=== PATIENT | female | born 1945 | race Caucasian/White ===

== ENCOUNTER 2020-09-01 18:32 | Inpatient (IN) ==
[2020-09-01] MEDS ORDERED: GLUCAGON 1 MG VIAL IM PRN (21:05)
[2020-09-01] MEDS ORDERED: ONDANSETRON 4 MG/2 ML VIAL IV PRN (21:05)
[2020-09-01] MEDS ORDERED: ACETAMINOPHEN 325 MG TABLET PO PRN (21:05)
[2020-09-01] MEDS ORDERED: DEXTROSE 50% 25 GM/50 ML VIAL IV PRN ×2 (21:05)
[2020-09-01] MEDS: SODIUM CHLORIDE 0.9% 1,000 ML IV SCH (23:00)
[2020-09-01] MEDS ORDERED: SODIUM CHLORIDE 0.9% 1,000 ML IV ONE (23:53)
[2020-09-02] MEDS: ALBUTEROL/IPRATROPIUM 3 ML NEB RESP TX SCH ×4 (00:58→19:30)
[2020-09-02] MEDS: PIPERACILLIN/TAZOBACTAM 3,375 MG in SODIUM CHLORIDE 0.9% 100 ML IV SCH ×3 (03:13→17:40)
[2020-09-02 04:47] LABS: ABG Base Excess 1.7 MMOL/L (-2.5-2.5); ABG Oxygen Saturation 99.5 % (95-100); ABG PCO2 39.4 MM HG (35-48); ABG PH 7.428 (7.35-7.45); ABG TCO2 22.8 MMOL/L (23-27); Allen Test Positive
[2020-09-02] MEDS: SODIUM CHLORIDE 0.9% 1,000 ML IV SCH ×3 (07:20→23:13)
[2020-09-02] MEDS: INSULIN REGULAR 100 UNIT/ML SUBCUT SCH ×4 (07:30→21:26)
[2020-09-02 08:32] LABS: Basophils % 0.1 % (0.0-0.8); Eosinophils % 0.3 % (0.00-10.9); Hematocrit 41.5 VOL% (35.7-47.0); Hemoglobin 13.5 GM/DL (12.0-16.0); Immature Granulocytes % 0.5 %; Immature Granulocytes Absolute 0.06 #; Lymphocytes # 3.4 10*3/uL (1.4-4.0); Lymphocytes % 28.2 % (21.3-54.2); Mean Corpuscular HGB Conc 32.5 GM/DL (32-36); Mean Platelet Volume 10.5 FL (9.6-12.0); Neutrophils % 65.9 % (38.7-73.9); Platelet Count 147 T/CUMM (130-400); Red Blood Count 4.19 MC/CUMM (3.8-5.5); White Blood Count 12.1 T/CUMM (4-12)
[2020-09-02 09:02] LABS: Albumin 2.5 G/DL (3.4-5.0); Bilirubin,Total 0.5 MG/DL (0.2-1.0); Calcium 8.5 MG/DL (8.5-10.1); Osmolality,Calculated 290.3 MOS/KG (273-304); Potassium 3.4 MMOL/L (3.5-5.1); Total Protein 6.2 G/DL (6.4-8.3)
[2020-09-02 09:32] LABS: Anisocytosis Slight; Macrocytosis Slight; Platelet Estimate Adequate
[2020-09-02] MEDS: ENOXAPARIN 40 MG/0.4 ML SYRINGE SUBCUT SCH (10:12)
[2020-09-02] MEDS: PANTOPRAZOLE 40 MG TABLET PO SCH (10:12)
[2020-09-02] MEDS ORDERED: MAGNESIUM SULF RIDER 4 GM in PREMIX 1 EACH IV PRN (12:59)
[2020-09-02] MEDS ORDERED: NITROGLYCERIN SL 0.4 MG TABLET SL PRN (13:39)
[2020-09-02] MEDS: ATORVASTATIN 40 MG TABLET PO SCH (15:13)
[2020-09-02] MEDS: OXYBUTYNIN XL 5 MG TABLET PO SCH (15:13)
[2020-09-02] MEDS: NEBIVOLOL 5 MG TABLET PO SCH (15:13)
[2020-09-02] MEDS: ASPIRIN CHEW 81 MG TABLET PO SCH (15:13)
[2020-09-02] MEDS: POTASSIUM CHLORIDE 20 MEQ TABLET PO SCH (15:13)
[2020-09-02] MEDS: FUROSEMIDE 40 MG TABLET PO SCH (15:13)
[2020-09-02] MEDS: IRON (CARBONYL)/VIT C/B12/FA TABLET PO SCH (15:14)
[2020-09-02] MEDS: MAGNESIUM OXIDE 400 MG TABLET PO SCH ×2 (15:14→21:27)
[2020-09-02] MEDS: OMEGA 3 ACID ETHYL ESTERS 1 GM CAPSULE PO SCH ×2 (15:14→21:26)
[2020-09-02] MEDS: BUDESONIDE/FORMOTEROL 160-4.5 INHALER 6 GM INH SCH ×2 (15:15→21:29)
[2020-09-02] MEDS: PIRFENIDONE 267 MG PO SCH ×2 (18:17→21:30)
[2020-09-02] MEDS: ZALEPLON 5 MG CAPSULE PO PRN (21:26)
[2020-09-02] MEDS: AMITRIPTYLINE 25 MG TABLET PO SCH (21:27)
[2020-09-02] MEDS: GABAPENTIN 100 MG CAPSULE PO SCH (21:27)
[2020-09-03] MEDS: ALBUTEROL/IPRATROPIUM 3 ML NEB RESP TX SCH ×4 (00:12→19:22)
[2020-09-03] MEDS: PIPERACILLIN/TAZOBACTAM 3,375 MG in SODIUM CHLORIDE 0.9% 100 ML IV SCH ×3 (01:48→09:42)
[2020-09-03 04:40] LABS: Basophils % 0.1 % (0.0-0.8); Eosinophils # 0.1 10*3/uL (0.0-0.87); Eosinophils % 1.3 % (0.00-10.9); Hematocrit 36.4 VOL% (35.7-47.0); Hemoglobin 11.7 GM/DL (12.0-16.0); Immature Granulocytes % 0.4 %; Immature Granulocytes Absolute 0.04 #; Lymphocytes # 3.3 10*3/uL (1.4-4.0); Lymphocytes % 33.2 % (21.3-54.2); Mean Corpuscular HGB Conc 32.1 GM/DL (32-36); Mean Corpuscular Volume 98.9 FL (87-102); Monocytes % 5.5 % (1.7-12.7); Neutrophils % 59.5 % (38.7-73.9); Platelet Count 134 T/CUMM (130-400); Red Blood Count 3.68 MC/CUMM (3.8-5.5); Red Cell Distribution Width 13.9 % (9.3-17.3); White Blood Count 9.9 T/CUMM (4-12)
[2020-09-03 05:10] LABS: Albumin 2.3 G/DL (3.4-5.0); Bilirubin,Total 0.6 MG/DL (0.2-1.0); Calcium 8.3 MG/DL (8.5-10.1); Osmolality,Calculated 287.4 MOS/KG (273-304); Potassium 3.3 MMOL/L (3.5-5.1); Total Protein 5.8 G/DL (6.4-8.3)
[2020-09-03 05:43] LABS: Calcium 8.1 MG/DL (8.5-10.1); Osmolality,Calculated 292.1 MOS/KG (273-304); Potassium 3.4 MMOL/L (3.5-5.1)
[2020-09-03] MEDS: MAGNESIUM SULF RIDER 2 GM in PREMIX 1 EACH IV PRN (08:48)
[2020-09-03] MEDS: INSULIN REGULAR 100 UNIT/ML SUBCUT SCH ×4 (08:50→21:18)
[2020-09-03] MEDS: INSULIN GLARGINE 100 UNIT/ML SUBCUT SCH (08:50)
[2020-09-03] MEDS: OMEGA 3 ACID ETHYL ESTERS 1 GM CAPSULE PO SCH ×2 (08:50→21:11)
[2020-09-03] MEDS: ASPIRIN CHEW 81 MG TABLET PO SCH (08:51)
[2020-09-03] MEDS: PANTOPRAZOLE 40 MG TABLET PO SCH (08:51)
[2020-09-03] MEDS: IRON (CARBONYL)/VIT C/B12/FA TABLET PO SCH (08:51)
[2020-09-03] MEDS: NEBIVOLOL 5 MG TABLET PO SCH (08:51)
[2020-09-03] MEDS: FUROSEMIDE 40 MG TABLET PO SCH (08:52)
[2020-09-03] MEDS: OXYBUTYNIN XL 5 MG TABLET PO SCH (08:52)
[2020-09-03] MEDS: POTASSIUM CHLORIDE 20 MEQ TABLET PO SCH (08:52)
[2020-09-03] MEDS: ATORVASTATIN 40 MG TABLET PO SCH (08:52)
[2020-09-03] MEDS: ENOXAPARIN 40 MG/0.4 ML SYRINGE SUBCUT SCH (08:53)
[2020-09-03] MEDS: MAGNESIUM OXIDE 400 MG TABLET PO SCH ×2 (08:53→21:10)
[2020-09-03] MEDS: PIRFENIDONE 267 MG PO SCH ×4 (08:53→21:12)
[2020-09-03] MEDS: BUDESONIDE/FORMOTEROL 160-4.5 INHALER 6 GM INH SCH ×2 (08:54→21:19)
[2020-09-03] MEDS: SODIUM CHLORIDE 0.9% 1,000 ML IV SCH (09:50)
[2020-09-03] MEDS: POTASSIUM CHLORIDE 20 MEQ TABLET PO PRN ×2 (10:32→13:25)
[2020-09-03] MEDS ORDERED: NEOMYCIN/POLYMYXIN/BACITRACIN OINT 0.9 GM PACK TOP PRN (10:36)
[2020-09-03] MEDS: LEVOFLOXACIN INJ 750 MG in PREMIX 1 EACH IV SCH (16:42)
[2020-09-03] MEDS: AMITRIPTYLINE 25 MG TABLET PO SCH (21:10)
[2020-09-03] MEDS: GABAPENTIN 100 MG CAPSULE PO SCH (21:10)
[2020-09-03] MEDS: ZALEPLON 5 MG CAPSULE PO PRN (22:32)
[2020-09-04] MEDS: ALBUTEROL/IPRATROPIUM 3 ML NEB RESP TX SCH ×4 (00:41→20:10)
[2020-09-04 05:21] LABS: Basophils % 0.1 % (0.0-0.8); Eosinophils # 0.2 10*3/uL (0.0-0.87); Eosinophils % 1.6 % (0.00-10.9); Hematocrit 37.9 VOL% (35.7-47.0); Hemoglobin 11.8 GM/DL (12.0-16.0); Immature Granulocytes % 0.4 %; Immature Granulocytes Absolute 0.04 #; Lymphocytes # 2.9 10*3/uL (1.4-4.0); Mean Corpuscular HGB Conc 31.1 GM/DL (32-36); Mean Corpuscular Volume 101.6 FL (87-102); Mean Platelet Volume 10.4 FL (9.6-12.0); Monocytes % 4.8 % (1.7-12.7); Neutrophils % 63.1 % (38.7-73.9); Platelet Count 133 T/CUMM (130-400); Red Blood Count 3.73 MC/CUMM (3.8-5.5); Red Cell Distribution Width 14.1 % (9.3-17.3); White Blood Count 9.7 T/CUMM (4-12)
[2020-09-04] MEDS: SODIUM CHLORIDE 0.9% 1,000 ML IV SCH ×3 (05:52→20:53)
[2020-09-04 05:56] LABS: Calcium 8.5 MG/DL (8.5-10.1); Potassium 3.9 MMOL/L (3.5-5.1)
[2020-09-04] MEDS: MAGNESIUM SULF RIDER 2 GM in PREMIX 1 EACH IV PRN (06:29)
[2020-09-04] MEDS: POTASSIUM CHLORIDE 20 MEQ TABLET PO PRN (06:29)
[2020-09-04] MEDS: OXYBUTYNIN XL 5 MG TABLET PO SCH (09:49)
[2020-09-04] MEDS: DEXAMETHASONE 4 MG TABLET PO SCH (09:50)
[2020-09-04] MEDS: IRON (CARBONYL)/VIT C/B12/FA TABLET PO SCH (09:50)
[2020-09-04] MEDS: POTASSIUM CHLORIDE 20 MEQ TABLET PO SCH (09:50)
[2020-09-04] MEDS: ASPIRIN CHEW 81 MG TABLET PO SCH (09:50)
[2020-09-04] MEDS: FUROSEMIDE 40 MG TABLET PO SCH (09:50)
[2020-09-04] MEDS: PANTOPRAZOLE 40 MG TABLET PO SCH (09:50)
[2020-09-04] MEDS: MAGNESIUM OXIDE 400 MG TABLET PO SCH ×3 (09:50→23:16)
[2020-09-04] MEDS: ATORVASTATIN 40 MG TABLET PO SCH (09:51)
[2020-09-04] MEDS: ENOXAPARIN 40 MG/0.4 ML SYRINGE SUBCUT SCH (09:51)
[2020-09-04] MEDS: OMEGA 3 ACID ETHYL ESTERS 1 GM CAPSULE PO SCH ×2 (09:51→20:52)
[2020-09-04] MEDS: BUDESONIDE/FORMOTEROL 160-4.5 INHALER 6 GM INH SCH ×2 (09:52→20:53)
[2020-09-04] MEDS: INSULIN GLARGINE 100 UNIT/ML SUBCUT SCH (09:52)
[2020-09-04] MEDS: PIRFENIDONE 267 MG PO SCH ×3 (09:55→23:15)
[2020-09-04] MEDS: NEBIVOLOL 5 MG TABLET PO SCH (09:56)
[2020-09-04] MEDS: INSULIN REGULAR 100 UNIT/ML SUBCUT SCH ×4 (09:56→20:52)
[2020-09-04] MEDS: BENZONATATE 100 MG CAPSULE PO SCH ×3 (11:30→20:52)
[2020-09-04] MEDS: DORNASE ALFA 2.5 MG/2.5 ML VIAL RESP TX SCH ×2 (18:15→20:10)
[2020-09-04] MEDS: ZALEPLON 5 MG CAPSULE PO PRN (20:51)
[2020-09-04] MEDS: GABAPENTIN 100 MG CAPSULE PO SCH (20:52)
[2020-09-04] MEDS: AMITRIPTYLINE 25 MG TABLET PO SCH (20:52)
[2020-09-05] MEDS: ALBUTEROL/IPRATROPIUM 3 ML NEB RESP TX SCH ×4 (01:31→21:00)
[2020-09-05] MEDS: SODIUM CHLORIDE 0.9% 1,000 ML IV SCH ×2 (06:23→16:13)
[2020-09-05] MEDS: DORNASE ALFA 2.5 MG/2.5 ML VIAL RESP TX SCH ×2 (07:50→21:08)
[2020-09-05] MEDS ORDERED: DEXAMETHASONE 4 MG TABLET PO SCH (09:00)
[2020-09-05] MEDS: ASPIRIN CHEW 81 MG TABLET PO SCH (09:52)
[2020-09-05] MEDS: NEBIVOLOL 5 MG TABLET PO SCH (09:52)
[2020-09-05] MEDS: INSULIN REGULAR 100 UNIT/ML SUBCUT SCH ×4 (09:52→20:27)
[2020-09-05] MEDS: OXYBUTYNIN XL 5 MG TABLET PO SCH (09:53)
[2020-09-05] MEDS: ENOXAPARIN 40 MG/0.4 ML SYRINGE SUBCUT SCH (09:53)
[2020-09-05] MEDS: IRON (CARBONYL)/VIT C/B12/FA TABLET PO SCH (09:53)
[2020-09-05] MEDS: ATORVASTATIN 40 MG TABLET PO SCH (09:53)
[2020-09-05] MEDS: POTASSIUM CHLORIDE 20 MEQ TABLET PO SCH (09:53)
[2020-09-05] MEDS: MAGNESIUM OXIDE 400 MG TABLET PO SCH ×4 (09:53→20:38)
[2020-09-05] MEDS: FUROSEMIDE 40 MG TABLET PO SCH (09:53)
[2020-09-05] MEDS: INSULIN GLARGINE 100 UNIT/ML SUBCUT SCH (09:53)
[2020-09-05] MEDS: PIRFENIDONE 267 MG PO SCH ×3 (09:54→20:38)
[2020-09-05] MEDS: BENZONATATE 100 MG CAPSULE PO SCH ×3 (09:54→20:27)
[2020-09-05] MEDS: PANTOPRAZOLE 40 MG TABLET PO SCH (09:54)
[2020-09-05] MEDS: BUDESONIDE/FORMOTEROL 160-4.5 INHALER 6 GM INH SCH ×2 (09:54→20:26)
[2020-09-05] MEDS: OMEGA 3 ACID ETHYL ESTERS 1 GM CAPSULE PO SCH ×2 (10:44→20:26)
[2020-09-05] MEDS: LEVOFLOXACIN INJ 750 MG in PREMIX 1 EACH IV SCH (16:09)
[2020-09-05] MEDS: GABAPENTIN 100 MG CAPSULE PO SCH (20:26)
[2020-09-05] MEDS: AMITRIPTYLINE 25 MG TABLET PO SCH (20:27)
[2020-09-05] MEDS: ZALEPLON 5 MG CAPSULE PO PRN (20:34)
[2020-09-06] MEDS: ALBUTEROL/IPRATROPIUM 3 ML NEB RESP TX SCH ×2 (02:10→07:26)
[2020-09-06 05:56] LABS: Basophils % 0.1 % (0.0-0.8); Eosinophils # 0.1 10*3/uL (0.0-0.87); Eosinophils % 0.8 % (0.00-10.9); Hemoglobin 11.1 GM/DL (12.0-16.0); Immature Granulocytes % 0.5 %; Immature Granulocytes Absolute 0.04 #; Lymphocytes # 1.9 10*3/uL (1.4-4.0); Lymphocytes % 22.4 % (21.3-54.2); Mean Corpuscular HGB Conc 33.6 GM/DL (32-36); Mean Corpuscular Volume 97.1 FL (87-102); Mean Platelet Volume 10.9 FL (9.6-12.0); Monocytes % 4.8 % (1.7-12.7); Neutrophils % 71.4 % (38.7-73.9); Platelet Count 117 T/CUMM (130-400); Red Cell Distribution Width 14.1 % (9.3-17.3); White Blood Count 8.5 T/CUMM (4-12)
[2020-09-06 06:16] LABS: Calcium 8.6 MG/DL (8.5-10.1); Osmolality,Calculated 287.3 MOS/KG (273-304); Potassium 3.3 MMOL/L (3.5-5.1)
[2020-09-06] MEDS: SODIUM CHLORIDE 0.9% 1,000 ML IV SCH (06:17)
[2020-09-06] MEDS: DORNASE ALFA 2.5 MG/2.5 ML VIAL RESP TX SCH (07:26)
[2020-09-06] MEDS: BENZONATATE 100 MG CAPSULE PO SCH (08:57)
[2020-09-06] MEDS: MAGNESIUM OXIDE 400 MG TABLET PO SCH ×2 (08:57→09:01)
[2020-09-06] MEDS: IRON (CARBONYL)/VIT C/B12/FA TABLET PO SCH (08:57)
[2020-09-06] MEDS: POTASSIUM CHLORIDE 20 MEQ TABLET PO SCH (08:57)
[2020-09-06] MEDS: ASPIRIN CHEW 81 MG TABLET PO SCH (08:57)
[2020-09-06] MEDS: INSULIN GLARGINE 100 UNIT/ML SUBCUT SCH (08:57)
[2020-09-06] MEDS: DEXAMETHASONE 4 MG TABLET PO SCH (08:58)
[2020-09-06] MEDS: PIRFENIDONE 267 MG PO SCH (08:58)
[2020-09-06] MEDS: PANTOPRAZOLE 40 MG TABLET PO SCH (08:58)
[2020-09-06] MEDS: ATORVASTATIN 40 MG TABLET PO SCH (08:58)
[2020-09-06] MEDS: FUROSEMIDE 40 MG TABLET PO SCH (08:58)
[2020-09-06] MEDS: OMEGA 3 ACID ETHYL ESTERS 1 GM CAPSULE PO SCH (08:58)
[2020-09-06] MEDS: NEBIVOLOL 5 MG TABLET PO SCH (08:58)
[2020-09-06] MEDS: OXYBUTYNIN XL 5 MG TABLET PO SCH (08:58)
[2020-09-06] MEDS: INSULIN REGULAR 100 UNIT/ML SUBCUT SCH (08:59)
[2020-09-06] MEDS: ENOXAPARIN 40 MG/0.4 ML SYRINGE SUBCUT SCH (09:00)
[2020-09-06] MEDS: BUDESONIDE/FORMOTEROL 160-4.5 INHALER 6 GM INH SCH (09:00)
[2020-09-06 11:33] VITALS: BP 122/71
[2020-09-07] MEDS ORDERED: INFLUENZA VIRUS VACCINE 0.5 ML SYRINGE IM ONE (09:00)
== END 2020-09-06 12:45 | disposition home health service (06) | DRG 200 ==
LOC: N.3E → SUATTDRO 21:06
PROVIDERS: ADMIT Internal Medicine; ATTEND Emergency Medicine

== ENCOUNTER 2021-02-19 21:38 | Inpatient (IN) ==
[2021-02-19] MEDS ORDERED: SODIUM CHLORIDE 0.9% 1,000 ML IV STA ×2 (22:40→23:53)
[2021-02-19 22:50] LABS: Basophils % 0.2 % (0.0-0.8); Eosinophils % 0.2 % (0.00-10.9); Hematocrit 40.9 VOL% (35.7-47.0); Hemoglobin 13.1 GM/DL (12.0-16.0); Immature Granulocytes % 0.6 %; Immature Granulocytes Absolute 0.07 #; Lymphocytes # 2.8 10*3/uL (1.4-4.0); Lymphocytes % 22.1 % (21.3-54.2); Mean Corpuscular Volume 100.2 FL (87-102); Mean Platelet Volume 10.3 FL (9.6-12.0); Monocytes % 2.2 % (1.7-12.7); Neutrophils % 74.7 % (38.7-73.9); Platelet Count 207 T/CUMM (130-400); Red Blood Count 4.08 MC/CUMM (3.8-5.5); White Blood Count 12.6 T/CUMM (4-12)
[2021-02-19] MEDS ORDERED: PIPERACILLIN/TAZOBACTAM 3,375 MG in SODIUM CHLORIDE 0.9% 100 ML IV STA (22:55)
[2021-02-19] MEDS ORDERED: methylPREDNISolone SOD SUC 125 MG/2 ML VIAL IV STA (22:55)
[2021-02-19] MEDS ORDERED: ALBUTEROL/IPRATROPIUM 3 ML NEB RESP TX STA (22:58)
[2021-02-19] MEDS ORDERED: SODIUM CHLORIDE 0.9% 1,000 ML IV SCH (23:00)
[2021-02-19] MEDS ORDERED: ONDANSETRON 4 MG/2 ML VIAL IV STA (23:00)
[2021-02-19] MEDS ORDERED: ONDANSETRON 4 MG/2 ML VIAL ONE (23:03)
[2021-02-19 23:13] LABS: Albumin 3.4 G/DL (3.4-5.0); Bilirubin,Total 0.9 MG/DL (0.20-1.00); Osmolality,Calculated 287.3 MOS/KG (273-304); Potassium 3.3 MMOL/L (3.5-5.1); Total Protein 7.3 G/DL (6.4-8.2)
[2021-02-19] MEDS ORDERED: MAGNESIUM SULF RIDER 2 GM/50 ML PREMIX IV STA (23:13)
[2021-02-20] MEDS ORDERED: ENOXAPARIN 100 MG/ML SYRINGE SUBCUT STA (00:14)
[2021-02-20] MEDS ORDERED: ALBUTEROL 2.5 MG/3 ML NEB RESP TX PRN (00:20)
[2021-02-20] MEDS ORDERED: DEXTROSE 50% 25 GM/50 ML VIAL IV PRN (00:26)
[2021-02-20] MEDS ORDERED: GLUCAGON 1 MG VIAL IM PRN (00:26)
[2021-02-20] MEDS ORDERED: ONDANSETRON 4 MG/2 ML VIAL IV PRN (00:26)
[2021-02-20] MEDS ORDERED: NITROGLYCERIN SL 0.4 MG TABLET SL PRN (00:30)
[2021-02-20] MEDS ORDERED: SODIUM CHLORIDE 0.9% 1,000 ML IV SCH (00:30)
[2021-02-20] MEDS: ALBUTEROL/IPRATROPIUM 3 ML NEB RESP TX SCH ×6 (01:03→23:45)
[2021-02-20] MEDS ORDERED: AZITHROMYCIN INJ 500 MG in SODIUM CHLORIDE 0.9% 250 ML IV ONE (01:23)
[2021-02-20] MEDS ORDERED: POTASSIUM CHLORIDE 20 MEQ TABLET PO ONE (01:26)
[2021-02-20] MEDS ORDERED: NOREPINEPHRINE 4 MG/4 ML VIAL IV ONE ×2 (03:59→13:29)
[2021-02-20] MEDS: NOREPINEPHRINE 8 MG in SODIUM CHLORIDE 0.9% 242 ML IV PRN ×2 (04:15→13:36)
[2021-02-20 04:31] LABS: Basophils % 0.1 % (0.0-0.8); Eosinophils % 0.1 % (0.00-10.9); Hematocrit 33.9 VOL% (35.7-47.0); Immature Granulocytes % 1.1 %; Immature Granulocytes Absolute 0.14 #; Lymphocytes # 0.9 10*3/uL (1.4-4.0); Lymphocytes % 6.8 % (21.3-54.2); Mean Corpuscular HGB Conc 31.9 GM/DL (32-36); Mean Platelet Volume 10.3 FL (9.6-12.0); Monocytes % 3.8 % (1.7-12.7); Neutrophils % 88.1 % (38.7-73.9); Red Blood Count 3.29 MC/CUMM (3.8-5.5); Red Cell Distribution Width 14.9 % (9.3-17.3); White Blood Count 12.8 T/CUMM (4-12)
[2021-02-20 04:54] LABS: Albumin 2.5 G/DL (3.4-5.0); Bilirubin,Total 0.8 MG/DL (0.20-1.00); Calcium 8.7 MG/DL (8.5-10.1); Potassium 2.8 MMOL/L (3.5-5.1); Total Protein 5.9 G/DL (6.4-8.2)
[2021-02-20 05:08] LABS: Hemoglobin 10.8 GM/DL (12.0-16.0); Platelet Count 144 T/CUMM (130-400)
[2021-02-20 05:10] LABS: Band Neutrophils 10 % (0-10); Lymphocytes 6 % (20-55); Platelet Estimate Adequate; Segmented Neutrophils 83 % (50-85); Total Cells Counted 100
[2021-02-20 05:11] LABS: Hypochromasia Slight; Microcytosis Slight
[2021-02-20] MEDS ORDERED: LACTATED RINGERS 1,000 ML IV ONE (08:04)
[2021-02-20] MEDS: methylPREDNISolone SOD SUC 40 MG/1 ML VIAL IV SCH ×3 (08:21→23:52)
[2021-02-20] MEDS: INSULIN LISPRO 100 UNIT/ML SUBCUT SCH ×5 (08:21→20:57)
[2021-02-20] MEDS ORDERED: LACTATED RINGERS 1,000 ML IV SCH (08:30)
[2021-02-20] MEDS: OXYBUTYNIN XL 5 MG TABLET PO SCH (08:59)
[2021-02-20] MEDS: NEBIVOLOL 5 MG TABLET PO SCH (08:59)
[2021-02-20] MEDS: PANTOPRAZOLE 40 MG TABLET PO SCH (09:00)
[2021-02-20] MEDS: POTASSIUM CHLORIDE 20 MEQ TABLET PO SCH ×2 (09:00→20:57)
[2021-02-20] MEDS: BUDESONIDE/FORMOTEROL 160-4.5 INHALER 6 GM INH SCH ×2 (09:00→20:57)
[2021-02-20] MEDS: ATORVASTATIN 40 MG TABLET PO SCH (09:00)
[2021-02-20] MEDS: OMEGA 3 ACID ETHYL ESTERS 1 GM CAPSULE PO SCH ×2 (09:00→20:57)
[2021-02-20] MEDS: HYOSCYAMINE 0.125 MG TABLET PO SCH ×3 (09:00→20:57)
[2021-02-20] MEDS: MAGNESIUM OXIDE 400 MG TABLET PO SCH ×2 (09:00→20:57)
[2021-02-20] MEDS: IRON (CARBONYL)/VIT C/B12/FA TABLET PO SCH (09:00)
[2021-02-20] MEDS: GABAPENTIN 100 MG CAPSULE PO SCH ×2 (09:00→20:57)
[2021-02-20] MEDS: METHOCARBAMOL 500 MG TABLET PO SCH ×2 (09:00→20:57)
[2021-02-20] MEDS: allopurinoL 300 MG TABLET PO SCH (09:01)
[2021-02-20] MEDS ORDERED: MEROPENEM 1,000 MG VIAL ONE (09:03)
[2021-02-20] MEDS ORDERED: SODIUM CHLORIDE 0.9% 100 ML IV ONE (09:03)
[2021-02-20] MEDS: MEROPENEM 500 MG in SODIUM CHLORIDE 0.9% 100 ML IV SCH ×2 (09:12→17:26)
[2021-02-20 13:14] LABS: Calcium 8.3 MG/DL (8.5-10.1); Osmolality,Calculated 293.1 MOS/KG (273-304); Potassium 4.8 MMOL/L (3.5-5.1)
[2021-02-20] MEDS: SODIUM BICARB INJ 150 MEQ in DEXTROSE 5% 1,000 ML IV SCH (17:19)
[2021-02-20] MEDS ORDERED: POTASSIUM CHLORIDE 20 MEQ PACK ONE (20:42)
[2021-02-20] MEDS: AMITRIPTYLINE 25 MG TABLET PO SCH (20:57)
[2021-02-20] MEDS: INSULIN GLARGINE 100 UNIT/ML SUBCUT SCH (20:57)
[2021-02-21] MEDS: ALBUTEROL/IPRATROPIUM 3 ML NEB RESP TX SCH ×4 (01:00→19:23)
[2021-02-21] MEDS: MEROPENEM 500 MG in SODIUM CHLORIDE 0.9% 100 ML IV SCH ×3 (01:32→16:26)
[2021-02-21] MEDS: SODIUM BICARB INJ 150 MEQ in DEXTROSE 5% 1,000 ML IV SCH ×3 (04:21→20:26)
[2021-02-21] MEDS: AZITHROMYCIN INJ 250 MG in SODIUM CHLORIDE 0.9% 250 ML IV SCH (04:40)
[2021-02-21] MEDS: INSULIN LISPRO 100 UNIT/ML SUBCUT SCH ×5 (08:04→20:30)
[2021-02-21] MEDS: methylPREDNISolone SOD SUC 40 MG/1 ML VIAL IV SCH ×2 (09:20→16:26)
[2021-02-21] MEDS: ENOXAPARIN 40 MG/0.4 ML SYRINGE SUBCUT SCH (09:20)
[2021-02-21] MEDS: NEBIVOLOL 5 MG TABLET PO SCH (09:23)
[2021-02-21] MEDS: OXYBUTYNIN XL 5 MG TABLET PO SCH (09:23)
[2021-02-21] MEDS: HYOSCYAMINE 0.125 MG TABLET PO SCH ×3 (09:24→20:23)
[2021-02-21] MEDS: OMEGA 3 ACID ETHYL ESTERS 1 GM CAPSULE PO SCH ×2 (09:24→20:12)
[2021-02-21] MEDS: IRON (CARBONYL)/VIT C/B12/FA TABLET PO SCH (09:24)
[2021-02-21] MEDS: POTASSIUM CHLORIDE 20 MEQ TABLET PO SCH ×2 (09:24→20:12)
[2021-02-21] MEDS: ATORVASTATIN 40 MG TABLET PO SCH (09:24)
[2021-02-21] MEDS: MAGNESIUM OXIDE 400 MG TABLET PO SCH ×2 (09:25→20:13)
[2021-02-21] MEDS: GABAPENTIN 100 MG CAPSULE PO SCH ×2 (09:25→20:13)
[2021-02-21] MEDS: METHOCARBAMOL 500 MG TABLET PO SCH ×2 (09:25→20:13)
[2021-02-21] MEDS: allopurinoL 300 MG TABLET PO SCH (09:25)
[2021-02-21] MEDS: PANTOPRAZOLE 40 MG TABLET PO SCH (09:25)
[2021-02-21] MEDS: BUDESONIDE/FORMOTEROL 160-4.5 INHALER 6 GM INH SCH ×2 (09:25→20:16)
[2021-02-21 09:34] LABS: Basophils % 0.2 % (0.0-0.8); Hematocrit 30.2 VOL% (35.7-47.0); Hemoglobin 9.4 GM/DL (12.0-16.0); Immature Granulocytes Absolute 1.87 #; Lymphocytes # 0.8 10*3/uL (1.4-4.0); Lymphocytes % 4.4 % (21.3-54.2); Mean Corpuscular HGB Conc 31.1 GM/DL (32-36); Mean Corpuscular Volume 102.7 FL (87-102); Mean Platelet Volume 10.4 FL (9.6-12.0); Monocytes % 2.4 % (1.7-12.7); Platelet Count 120 T/CUMM (130-400); Red Blood Count 2.94 MC/CUMM (3.8-5.5); Red Cell Distribution Width 15.6 % (9.3-17.3)
[2021-02-21 09:50] LABS: Albumin 2.2 G/DL (3.4-5.0); Bilirubin,Total 0.5 MG/DL (0.20-1.00); Osmolality,Calculated 293.3 MOS/KG (273-304); Potassium 4.1 MMOL/L (3.5-5.1); Total Protein 6.3 G/DL (6.4-8.2)
[2021-02-21 09:54] LABS: Band Neutrophils 10 % (0-10); Lymphocytes 2 % (20-55); Metamyelocytes 3 %; Segmented Neutrophils 81 % (50-85); Total Cells Counted 100
[2021-02-21 09:55] LABS: Microcytosis 1+; Ovalocytes Slight
[2021-02-21 09:56] LABS: Hypochromasia Slight; Platelet Estimate Adequate
[2021-02-21 09:59] LABS: % Iron Saturation 7.2 % (18-50)
[2021-02-21 10:59] LABS: Folate 6.05 NG/ML (5.38-24.0)
[2021-02-21] MEDS: DOBUTamine 500 MG/250 ML PREMIX IV SCH (15:19)
[2021-02-21] MEDS: AMITRIPTYLINE 25 MG TABLET PO SCH (20:13)
[2021-02-21] MEDS: INSULIN GLARGINE 100 UNIT/ML SUBCUT SCH (20:31)
[2021-02-22] MEDS: methylPREDNISolone SOD SUC 40 MG/1 ML VIAL IV SCH ×3 (00:03→17:15)
[2021-02-22] MEDS: MEROPENEM 500 MG in SODIUM CHLORIDE 0.9% 100 ML IV SCH ×3 (00:03→17:18)
[2021-02-22] MEDS: ALBUTEROL/IPRATROPIUM 3 ML NEB RESP TX SCH ×3 (00:45→19:35)
[2021-02-22 04:15] LABS: Basophils % 0.2 % (0.0-0.8); Hematocrit 27.2 VOL% (35.7-47.0); Hemoglobin 8.9 GM/DL (12.0-16.0); Immature Granulocytes % 18.4 %; Immature Granulocytes Absolute 3.14 #; Lymphocytes # 0.5 10*3/uL (1.4-4.0); Lymphocytes % 2.6 % (21.3-54.2); Mean Corpuscular HGB Conc 32.7 GM/DL (32-36); Mean Corpuscular Volume 100.4 FL (87-102); Mean Platelet Volume 10.5 FL (9.6-12.0); Neutrophils % 76.8 % (38.7-73.9); Platelet Count 120 T/CUMM (130-400); Red Blood Count 2.71 MC/CUMM (3.8-5.5); White Blood Count 17.1 T/CUMM (4-12)
[2021-02-22] MEDS: SODIUM BICARB INJ 150 MEQ in DEXTROSE 5% 1,000 ML IV SCH ×2 (04:33→10:45)
[2021-02-22 04:41] LABS: Albumin 1.9 G/DL (3.4-5.0); Bilirubin,Total 0.4 MG/DL (0.20-1.00); Potassium 3.8 MMOL/L (3.5-5.1); Total Protein 5.7 G/DL (6.4-8.2)
[2021-02-22 04:50] LABS: Band Neutrophils 3 % (0-10); Lymphocytes 8 % (20-55); Metamyelocytes 1 %; Segmented Neutrophils 81 % (50-85); Total Cells Counted 100
[2021-02-22 04:51] LABS: Hypochromasia Slight; Microcytosis 1+; Ovalocytes Slight; Platelet Estimate Adequate
[2021-02-22] MEDS: AZITHROMYCIN INJ 250 MG in SODIUM CHLORIDE 0.9% 250 ML IV SCH (06:38)
[2021-02-22] MEDS: INSULIN LISPRO 100 UNIT/ML SUBCUT SCH ×5 (09:03→22:31)
[2021-02-22] MEDS: HYOSCYAMINE 0.125 MG TABLET PO SCH ×3 (09:04→21:04)
[2021-02-22] MEDS: ATORVASTATIN 40 MG TABLET PO SCH (09:04)
[2021-02-22] MEDS: NEBIVOLOL 5 MG TABLET PO SCH (09:04)
[2021-02-22] MEDS: PANTOPRAZOLE 40 MG TABLET PO SCH (09:04)
[2021-02-22] MEDS: MAGNESIUM OXIDE 400 MG TABLET PO SCH ×2 (09:04→21:03)
[2021-02-22] MEDS: OXYBUTYNIN XL 5 MG TABLET PO SCH (09:05)
[2021-02-22] MEDS: IRON (CARBONYL)/VIT C/B12/FA TABLET PO SCH (09:05)
[2021-02-22] MEDS: METHOCARBAMOL 500 MG TABLET PO SCH ×2 (09:05→21:04)
[2021-02-22] MEDS: OMEGA 3 ACID ETHYL ESTERS 1 GM CAPSULE PO SCH ×2 (09:05→21:05)
[2021-02-22] MEDS: GABAPENTIN 100 MG CAPSULE PO SCH ×2 (09:05→21:04)
[2021-02-22] MEDS: POTASSIUM CHLORIDE 20 MEQ TABLET PO SCH ×2 (09:05→21:03)
[2021-02-22] MEDS: allopurinoL 300 MG TABLET PO SCH (09:05)
[2021-02-22] MEDS: BUDESONIDE/FORMOTEROL 160-4.5 INHALER 6 GM INH SCH ×2 (09:15→21:07)
[2021-02-22] MEDS: ENOXAPARIN 40 MG/0.4 ML SYRINGE SUBCUT SCH (09:15)
[2021-02-22] MEDS: DOBUTamine 500 MG/250 ML PREMIX IV SCH (13:43)
[2021-02-22] MEDS ORDERED: ZINC OXIDE PASTE 113 GM TUBE TOP PRN (14:38)
[2021-02-22] MEDS: AMITRIPTYLINE 25 MG TABLET PO SCH (21:05)
[2021-02-22] MEDS: INSULIN GLARGINE 100 UNIT/ML SUBCUT SCH (22:30)
[2021-02-23] MEDS: ALBUTEROL/IPRATROPIUM 3 ML NEB RESP TX SCH ×4 (00:05→19:07)
[2021-02-23] MEDS: methylPREDNISolone SOD SUC 40 MG/1 ML VIAL IV SCH ×3 (00:09→15:52)
[2021-02-23] MEDS: MEROPENEM 500 MG in SODIUM CHLORIDE 0.9% 100 ML IV SCH ×3 (00:09→17:18)
[2021-02-23 05:50] LABS: Basophils % 0.2 % (0.0-0.8); Hematocrit 30.4 VOL% (35.7-47.0); Hemoglobin 9.9 GM/DL (12.0-16.0); Immature Granulocytes % 0.4 %; Immature Granulocytes Absolute 0.06 #; Lymphocytes # 0.7 10*3/uL (1.4-4.0); Mean Corpuscular HGB Conc 32.6 GM/DL (32-36); Mean Platelet Volume 11.3 FL (9.6-12.0); Monocytes % 1.4 % (1.7-12.7); Platelet Count 124 T/CUMM (130-400); Red Blood Count 3.01 MC/CUMM (3.8-5.5); Red Cell Distribution Width 14.9 % (9.3-17.3); White Blood Count 16.4 T/CUMM (4-12)
[2021-02-23] MEDS: AZITHROMYCIN INJ 250 MG in SODIUM CHLORIDE 0.9% 250 ML IV SCH (05:54)
[2021-02-23 06:14] LABS: Calcium 8.5 MG/DL (8.5-10.1); Osmolality,Calculated 281.7 MOS/KG (273-304); Potassium 5.5 MMOL/L (3.5-5.1)
[2021-02-23 06:48] LABS: Band Neutrophils 3 % (0-10); Hypochromasia Slight; Lymphocytes 4 % (20-55); Macrocytosis Slight; Platelet Estimate Normal; Segmented Neutrophils 92 % (50-85); Total Cells Counted 100
[2021-02-23] MEDS: ENOXAPARIN 40 MG/0.4 ML SYRINGE SUBCUT SCH (09:18)
[2021-02-23] MEDS: INSULIN LISPRO 100 UNIT/ML SUBCUT SCH ×5 (09:18→21:32)
[2021-02-23] MEDS: PANTOPRAZOLE 40 MG TABLET PO SCH (09:19)
[2021-02-23] MEDS: IRON (CARBONYL)/VIT C/B12/FA TABLET PO SCH (09:19)
[2021-02-23] MEDS: allopurinoL 300 MG TABLET PO SCH (09:19)
[2021-02-23] MEDS: OMEGA 3 ACID ETHYL ESTERS 1 GM CAPSULE PO SCH ×2 (09:19→20:52)
[2021-02-23] MEDS: METHOCARBAMOL 500 MG TABLET PO SCH ×2 (09:19→20:52)
[2021-02-23] MEDS: OXYBUTYNIN XL 5 MG TABLET PO SCH (09:19)
[2021-02-23] MEDS: HYOSCYAMINE 0.125 MG TABLET PO SCH ×3 (09:19→20:52)
[2021-02-23] MEDS: ATORVASTATIN 40 MG TABLET PO SCH (09:19)
[2021-02-23] MEDS: GABAPENTIN 100 MG CAPSULE PO SCH ×2 (09:19→20:52)
[2021-02-23] MEDS: MAGNESIUM OXIDE 400 MG TABLET PO SCH ×2 (09:19→20:52)
[2021-02-23] MEDS: NEBIVOLOL 5 MG TABLET PO SCH (09:19)
[2021-02-23] MEDS: BUDESONIDE/FORMOTEROL 160-4.5 INHALER 6 GM INH SCH ×2 (09:20→21:33)
[2021-02-23] MEDS: POTASSIUM CHLORIDE 20 MEQ TABLET PO SCH ×2 (09:24→20:53)
[2021-02-23] MEDS: AMITRIPTYLINE 25 MG TABLET PO SCH (20:52)
[2021-02-23] MEDS: INSULIN GLARGINE 100 UNIT/ML SUBCUT SCH (21:33)
[2021-02-24] MEDS: methylPREDNISolone SOD SUC 40 MG/1 ML VIAL IV SCH ×3 (00:40→16:57)
[2021-02-24] MEDS: ALBUTEROL/IPRATROPIUM 3 ML NEB RESP TX SCH ×4 (01:28→19:23)
[2021-02-24] MEDS: MEROPENEM 500 MG in SODIUM CHLORIDE 0.9% 100 ML IV SCH ×3 (02:20→16:57)
[2021-02-24] MEDS: AZITHROMYCIN INJ 250 MG in SODIUM CHLORIDE 0.9% 250 ML IV SCH (05:44)
[2021-02-24 06:36] LABS: Calcium 9.1 MG/DL (8.5-10.1); Osmolality,Calculated 286.1 MOS/KG (273-304); Potassium 4.6 MMOL/L (3.5-5.1)
[2021-02-24 07:06] LABS: Basophils # 0.1 10*3/uL (0.0-0.2); Basophils % 0.7 % (0.0-0.8); Hematocrit 52.9 VOL% (35.7-47.0); Hemoglobin 15.9 GM/DL (12.0-16.0); Immature Granulocytes % 1.6 %; Immature Granulocytes Absolute 0.17 #; Lymphocytes # 0.8 10*3/uL (1.4-4.0); Lymphocytes % 7.4 % (21.3-54.2); Mean Corpuscular HGB Conc 30.1 GM/DL (32-36); Mean Corpuscular Volume 109.1 FL (87-102); Mean Platelet Volume 9.8 FL (9.6-12.0); Neutrophils % 87.3 % (38.7-73.9); Platelet Count 108 T/CUMM (130-400); Red Blood Count 4.85 MC/CUMM (3.8-5.5); Red Cell Distribution Width 14.6 % (9.3-17.3); White Blood Count 10.9 T/CUMM (4-12)
[2021-02-24] MEDS: INSULIN LISPRO 100 UNIT/ML SUBCUT SCH ×5 (07:24→20:40)
[2021-02-24] MEDS: amLODIPine 10 MG TABLET PO SCH (08:19)
[2021-02-24] MEDS: NEBIVOLOL 5 MG TABLET PO SCH (08:19)
[2021-02-24] MEDS: OMEGA 3 ACID ETHYL ESTERS 1 GM CAPSULE PO SCH ×2 (08:19→21:28)
[2021-02-24] MEDS: POTASSIUM CHLORIDE 20 MEQ TABLET PO SCH ×2 (08:19→21:28)
[2021-02-24] MEDS: MAGNESIUM OXIDE 400 MG TABLET PO SCH ×2 (08:19→21:28)
[2021-02-24] MEDS: GABAPENTIN 100 MG CAPSULE PO SCH ×2 (08:19→21:28)
[2021-02-24] MEDS: METHOCARBAMOL 500 MG TABLET PO SCH ×2 (08:19→21:28)
[2021-02-24] MEDS: OXYBUTYNIN XL 5 MG TABLET PO SCH (08:19)
[2021-02-24] MEDS: IRON (CARBONYL)/VIT C/B12/FA TABLET PO SCH (08:19)
[2021-02-24] MEDS: allopurinoL 300 MG TABLET PO SCH (08:19)
[2021-02-24] MEDS: ATORVASTATIN 40 MG TABLET PO SCH (08:19)
[2021-02-24] MEDS: HYOSCYAMINE 0.125 MG TABLET PO SCH ×3 (08:19→21:28)
[2021-02-24] MEDS: PANTOPRAZOLE 40 MG TABLET PO SCH (08:20)
[2021-02-24] MEDS: ENOXAPARIN 40 MG/0.4 ML SYRINGE SUBCUT SCH (08:20)
[2021-02-24] MEDS: BUDESONIDE/FORMOTEROL 160-4.5 INHALER 6 GM INH SCH ×2 (08:21→23:03)
[2021-02-24] MEDS: ACYCLOVIR 5% OINT 15 GM TUBE TOP SCH ×4 (13:13→21:35)
[2021-02-24] MEDS ORDERED: MORPHINE 2 MG/1 ML SYRINGE IV ONE (13:41)
[2021-02-24] MEDS: MORPHINE 2 MG/1 ML SYRINGE IV PRN ×2 (17:55→21:33)
[2021-02-24] MEDS: AMITRIPTYLINE 25 MG TABLET PO SCH (21:28)
[2021-02-24] MEDS: INSULIN GLARGINE 100 UNIT/ML SUBCUT SCH (23:01)
[2021-02-25] MEDS: methylPREDNISolone SOD SUC 40 MG/1 ML VIAL IV SCH ×3 (00:27→16:40)
[2021-02-25] MEDS: ALBUTEROL/IPRATROPIUM 3 ML NEB RESP TX SCH ×5 (02:03→20:10)
[2021-02-25] MEDS: MEROPENEM 500 MG in SODIUM CHLORIDE 0.9% 100 ML IV SCH ×3 (02:04→16:41)
[2021-02-25] MEDS: MORPHINE 2 MG/1 ML SYRINGE IV PRN ×2 (02:07→10:47)
[2021-02-25 05:50] LABS: Basophils % 0.2 % (0.0-0.8); Hematocrit 31.8 VOL% (35.7-47.0); Immature Granulocytes % 4.3 %; Immature Granulocytes Absolute 0.39 #; Lymphocytes # 0.9 10*3/uL (1.4-4.0); Lymphocytes % 9.5 % (21.3-54.2); Mean Corpuscular HGB Conc 31.1 GM/DL (32-36); Mean Corpuscular Volume 102.3 FL (87-102); Mean Platelet Volume 10.7 FL (9.6-12.0); NRBC # 0.03 10*3/uL; Red Cell Distribution Width 14.7 % (9.3-17.3)
[2021-02-25 06:17] LABS: Albumin 2.2 G/DL (3.4-5.0); Bilirubin,Total 0.8 MG/DL (0.20-1.00); Osmolality,Calculated 283.4 MOS/KG (273-304); Potassium 5.1 MMOL/L (3.5-5.1); Total Protein 6.3 G/DL (6.4-8.2)
[2021-02-25 06:24] LABS: Hemoglobin 9.9 GM/DL (12.0-16.0); Red Blood Count 3.11 MC/CUMM (3.8-5.5)
[2021-02-25 06:25] LABS: Platelet Count 190 T/CUMM (130-400)
[2021-02-25 06:36] LABS: Osmolality,Calculated 280.5 MOS/KG (273-304); Potassium 5.3 MMOL/L (3.5-5.1)
[2021-02-25] MEDS: ACYCLOVIR 5% OINT 15 GM TUBE TOP SCH ×5 (07:33→21:37)
[2021-02-25] MEDS: IRON (CARBONYL)/VIT C/B12/FA TABLET PO SCH (09:10)
[2021-02-25] MEDS: OMEGA 3 ACID ETHYL ESTERS 1 GM CAPSULE PO SCH ×2 (09:10→20:42)
[2021-02-25] MEDS: PANTOPRAZOLE 40 MG TABLET PO SCH (09:10)
[2021-02-25] MEDS: ATORVASTATIN 40 MG TABLET PO SCH (09:10)
[2021-02-25] MEDS: GABAPENTIN 100 MG CAPSULE PO SCH ×2 (09:10→20:42)
[2021-02-25] MEDS: ENOXAPARIN 40 MG/0.4 ML SYRINGE SUBCUT SCH (09:10)
[2021-02-25] MEDS: amLODIPine 10 MG TABLET PO SCH (09:10)
[2021-02-25] MEDS: NEBIVOLOL 5 MG TABLET PO SCH (09:10)
[2021-02-25] MEDS: MAGNESIUM OXIDE 400 MG TABLET PO SCH ×2 (09:10→20:42)
[2021-02-25] MEDS: METHOCARBAMOL 500 MG TABLET PO SCH ×2 (09:10→20:42)
[2021-02-25] MEDS: POTASSIUM CHLORIDE 20 MEQ TABLET PO SCH ×2 (09:11→20:42)
[2021-02-25] MEDS: INSULIN LISPRO 100 UNIT/ML SUBCUT SCH ×5 (09:11→21:35)
[2021-02-25] MEDS: OXYBUTYNIN XL 5 MG TABLET PO SCH (09:11)
[2021-02-25] MEDS: allopurinoL 300 MG TABLET PO SCH (09:11)
[2021-02-25] MEDS: HYOSCYAMINE 0.125 MG TABLET PO SCH ×3 (09:11→20:42)
[2021-02-25] MEDS: BUDESONIDE/FORMOTEROL 160-4.5 INHALER 6 GM INH SCH ×2 (09:12→20:42)
[2021-02-25] MEDS: CLINDAMYCIN INJ 300 MG/50 ML PREMIX IV SCH ×2 (12:20→18:10)
[2021-02-25] MEDS: BENZONATATE 100 MG CAPSULE PO SCH ×2 (16:40→20:42)
[2021-02-25] MEDS: AMITRIPTYLINE 25 MG TABLET PO SCH (20:42)
[2021-02-25] MEDS: INSULIN GLARGINE 100 UNIT/ML SUBCUT SCH (21:35)
[2021-02-26] MEDS: ALBUTEROL/IPRATROPIUM 3 ML NEB RESP TX SCH ×4 (01:15→19:16)
[2021-02-26] MEDS: MEROPENEM 500 MG in SODIUM CHLORIDE 0.9% 100 ML IV SCH ×3 (01:31→17:21)
[2021-02-26] MEDS: CLINDAMYCIN INJ 300 MG/50 ML PREMIX IV SCH ×3 (03:23→18:20)
[2021-02-26] MEDS: methylPREDNISolone SOD SUC 40 MG/1 ML VIAL IV SCH ×2 (06:06→17:21)
[2021-02-26] MEDS: ACYCLOVIR 5% OINT 15 GM TUBE TOP SCH ×5 (06:07→21:07)
[2021-02-26 06:50] LABS: Basophils % 0.3 % (0.0-0.8); Eosinophils % 0.2 % (0.00-10.9); Hematocrit 33.6 VOL% (35.7-47.0); Hemoglobin 10.5 GM/DL (12.0-16.0); Immature Granulocytes % 3.8 %; Immature Granulocytes Absolute 0.43 #; Lymphocytes # 2.8 10*3/uL (1.4-4.0); Lymphocytes % 25.2 % (21.3-54.2); Mean Corpuscular HGB Conc 31.3 GM/DL (32-36); Mean Corpuscular Volume 102.4 FL (87-102); Mean Platelet Volume 10.2 FL (9.6-12.0); Monocytes % 5.6 % (1.7-12.7); NRBC # 0.02 10*3/uL; Neutrophils % 64.9 % (38.7-73.9); Platelet Count 237 T/CUMM (130-400); Red Blood Count 3.28 MC/CUMM (3.8-5.5); Red Cell Distribution Width 14.6 % (9.3-17.3); White Blood Count 11.2 T/CUMM (4-12)
[2021-02-26 07:09] LABS: Calcium 9.3 MG/DL (8.5-10.1); Osmolality,Calculated 281.4 MOS/KG (273-304); Potassium 4.8 MMOL/L (3.5-5.1)
[2021-02-26 08:16] LABS: Lymphocytes 38 % (20-55); Nucleated Red Blood Cells 1 (0-5); Platelet Estimate Adequate; Segmented Neutrophils 55 % (50-85); Total Cells Counted 100
[2021-02-26 08:17] LABS: Hypochromasia 1+; Microcytosis 1+
[2021-02-26] MEDS: ENOXAPARIN 40 MG/0.4 ML SYRINGE SUBCUT SCH (08:40)
[2021-02-26] MEDS: OMEGA 3 ACID ETHYL ESTERS 1 GM CAPSULE PO SCH ×2 (08:40→21:07)
[2021-02-26] MEDS: METHOCARBAMOL 500 MG TABLET PO SCH ×2 (08:40→21:07)
[2021-02-26] MEDS: allopurinoL 300 MG TABLET PO SCH (08:40)
[2021-02-26] MEDS: MAGNESIUM OXIDE 400 MG TABLET PO SCH ×2 (08:41→21:08)
[2021-02-26] MEDS: POTASSIUM CHLORIDE 20 MEQ TABLET PO SCH ×2 (08:41→21:07)
[2021-02-26] MEDS: amLODIPine 10 MG TABLET PO SCH (08:41)
[2021-02-26] MEDS: BUDESONIDE/FORMOTEROL 160-4.5 INHALER 6 GM INH SCH ×2 (08:41→21:09)
[2021-02-26] MEDS: NEBIVOLOL 5 MG TABLET PO SCH (08:41)
[2021-02-26] MEDS: OXYBUTYNIN XL 5 MG TABLET PO SCH (08:41)
[2021-02-26] MEDS: IRON (CARBONYL)/VIT C/B12/FA TABLET PO SCH (08:41)
[2021-02-26] MEDS: PANTOPRAZOLE 40 MG TABLET PO SCH (08:41)
[2021-02-26] MEDS: HYOSCYAMINE 0.125 MG TABLET PO SCH ×3 (08:41→21:08)
[2021-02-26] MEDS: BENZONATATE 100 MG CAPSULE PO SCH ×3 (08:41→21:08)
[2021-02-26] MEDS: ATORVASTATIN 40 MG TABLET PO SCH (08:41)
[2021-02-26] MEDS: INSULIN LISPRO 100 UNIT/ML SUBCUT SCH ×5 (08:42→21:08)
[2021-02-26] MEDS: GABAPENTIN 100 MG CAPSULE PO SCH ×2 (08:47→21:08)
[2021-02-26] MEDS: MUPIROCIN 2% OINT 22 GM TUBE TOP SCH ×2 (11:50→21:07)
[2021-02-26] MEDS ORDERED: LIDOCAINE 2% 5 ML VIAL ONE (12:40)
[2021-02-26] MEDS ORDERED: propofoL 200 MG/20 ML VIAL IV ONE (12:40)
[2021-02-26] MEDS ORDERED: LACTATED RINGERS 1,000 ML IV SCH (13:00)
[2021-02-26] MEDS: MORPHINE 2 MG/1 ML SYRINGE IV PRN (15:00)
[2021-02-26] MEDS ORDERED: GLUCAGON 1 MG VIAL IM PRN (15:14)
[2021-02-26] MEDS ORDERED: DEXTROSE 50% 25 GM/50 ML VIAL IV PRN (15:14)
[2021-02-26] MEDS: AMITRIPTYLINE 25 MG TABLET PO SCH (21:08)
[2021-02-26] MEDS: INSULIN GLARGINE 100 UNIT/ML SUBCUT SCH (21:09)
[2021-02-27] MEDS: ALBUTEROL/IPRATROPIUM 3 ML NEB RESP TX SCH ×5 (00:10→20:01)
[2021-02-27] MEDS: MEROPENEM 500 MG in SODIUM CHLORIDE 0.9% 100 ML IV SCH ×3 (01:34→17:46)
[2021-02-27] MEDS: CLINDAMYCIN INJ 300 MG/50 ML PREMIX IV SCH ×3 (02:05→21:47)
[2021-02-27 05:22] LABS: Basophils % 0.2 % (0.0-0.8); Hemoglobin 9.9 GM/DL (12.0-16.0); Immature Granulocytes % 2.5 %; Immature Granulocytes Absolute 0.31 #; Lymphocytes # 2.2 10*3/uL (1.4-4.0); Lymphocytes % 17.9 % (21.3-54.2); Mean Corpuscular HGB Conc 30.9 GM/DL (32-36); Mean Corpuscular Volume 100.9 FL (87-102); Monocytes % 3.6 % (1.7-12.7); NRBC # 0.02 10*3/uL; Neutrophils % 75.8 % (38.7-73.9); Platelet Count 241 T/CUMM (130-400); Red Blood Count 3.17 MC/CUMM (3.8-5.5); Red Cell Distribution Width 14.7 % (9.3-17.3); White Blood Count 12.3 T/CUMM (4-12)
[2021-02-27 05:48] LABS: Calcium 9.2 MG/DL (8.5-10.1); Osmolality,Calculated 276.8 MOS/KG (273-304)
[2021-02-27] MEDS: methylPREDNISolone SOD SUC 40 MG/1 ML VIAL IV SCH ×2 (06:04→17:38)
[2021-02-27] MEDS: ACYCLOVIR 5% OINT 15 GM TUBE TOP SCH ×5 (06:04→22:02)
[2021-02-27] MEDS: INSULIN LISPRO 100 UNIT/ML SUBCUT SCH ×5 (07:23→21:52)
[2021-02-27] MEDS: NEBIVOLOL 5 MG TABLET PO SCH (10:20)
[2021-02-27] MEDS: IRON (CARBONYL)/VIT C/B12/FA TABLET PO SCH (10:21)
[2021-02-27] MEDS: POTASSIUM CHLORIDE 20 MEQ TABLET PO SCH ×2 (10:21→21:53)
[2021-02-27] MEDS: OXYBUTYNIN XL 5 MG TABLET PO SCH (10:21)
[2021-02-27] MEDS: HYOSCYAMINE 0.125 MG TABLET PO SCH ×3 (10:22→21:53)
[2021-02-27] MEDS: OMEGA 3 ACID ETHYL ESTERS 1 GM CAPSULE PO SCH ×2 (10:22→21:53)
[2021-02-27] MEDS: MAGNESIUM OXIDE 400 MG TABLET PO SCH ×2 (10:22→21:53)
[2021-02-27] MEDS: ATORVASTATIN 40 MG TABLET PO SCH (10:22)
[2021-02-27] MEDS: GABAPENTIN 100 MG CAPSULE PO SCH ×2 (10:23→21:53)
[2021-02-27] MEDS: amLODIPine 10 MG TABLET PO SCH (10:24)
[2021-02-27] MEDS: PANTOPRAZOLE 40 MG TABLET PO SCH (10:24)
[2021-02-27] MEDS: METHOCARBAMOL 500 MG TABLET PO SCH ×2 (10:24→21:53)
[2021-02-27] MEDS: allopurinoL 300 MG TABLET PO SCH (10:25)
[2021-02-27] MEDS: BENZONATATE 100 MG CAPSULE PO SCH ×3 (10:25→21:53)
[2021-02-27] MEDS: BUDESONIDE/FORMOTEROL 160-4.5 INHALER 6 GM INH SCH ×2 (10:38→22:02)
[2021-02-27] MEDS: MUPIROCIN 2% OINT 22 GM TUBE TOP SCH ×2 (10:48→22:02)
[2021-02-27] MEDS: FERRIC GLUCONATE COMPLEX 125 MG in SODIUM CHLORIDE 0.9% 100 ML IV SCH (12:47)
[2021-02-27] MEDS: INSULIN GLARGINE 100 UNIT/ML SUBCUT SCH (21:53)
[2021-02-27] MEDS: AMITRIPTYLINE 25 MG TABLET PO SCH (21:54)
[2021-02-28] MEDS: ALBUTEROL/IPRATROPIUM 3 ML NEB RESP TX SCH ×4 (00:40→19:35)
[2021-02-28] MEDS: CLINDAMYCIN INJ 300 MG/50 ML PREMIX IV SCH ×3 (02:29→19:10)
[2021-02-28] MEDS: ACYCLOVIR 5% OINT 15 GM TUBE TOP SCH ×5 (05:23→21:00)
[2021-02-28] MEDS: methylPREDNISolone SOD SUC 40 MG/1 ML VIAL IV SCH ×2 (05:27→18:33)
[2021-02-28] MEDS: INSULIN LISPRO 100 UNIT/ML SUBCUT SCH ×5 (09:16→20:34)
[2021-02-28] MEDS: HYOSCYAMINE 0.125 MG TABLET PO SCH ×3 (09:25→20:35)
[2021-02-28 11:14] LABS: Basophils % 0.2 % (0.0-0.8); Hemoglobin 10.2 GM/DL (12.0-16.0); Lymphocytes # 0.6 10*3/uL (1.4-4.0); Lymphocytes % 3.1 % (21.3-54.2); Mean Corpuscular HGB Conc 31.9 GM/DL (32-36); Mean Corpuscular Volume 100.3 FL (87-102); Mean Platelet Volume 9.7 FL (9.6-12.0); Monocytes % 1.6 % (1.7-12.7); Neutrophils % 93.1 % (38.7-73.9); Platelet Count 254 T/CUMM (130-400); Red Blood Count 3.19 MC/CUMM (3.8-5.5); Red Cell Distribution Width 14.7 % (9.3-17.3)
[2021-02-28] MEDS: FERRIC GLUCONATE COMPLEX 125 MG in SODIUM CHLORIDE 0.9% 100 ML IV SCH (12:31)
[2021-02-28] MEDS: OXYBUTYNIN XL 5 MG TABLET PO SCH (12:31)
[2021-02-28] MEDS: NEBIVOLOL 5 MG TABLET PO SCH (12:31)
[2021-02-28] MEDS: POTASSIUM CHLORIDE 20 MEQ TABLET PO SCH ×2 (12:32→20:35)
[2021-02-28] MEDS: IRON (CARBONYL)/VIT C/B12/FA TABLET PO SCH (12:32)
[2021-02-28] MEDS: OMEGA 3 ACID ETHYL ESTERS 1 GM CAPSULE PO SCH ×2 (12:33→20:35)
[2021-02-28] MEDS: ATORVASTATIN 40 MG TABLET PO SCH (12:33)
[2021-02-28] MEDS: POLYETHYLENE GLYCOL POWDER 17 GM PACK PO SCH (12:34)
[2021-02-28] MEDS: amLODIPine 10 MG TABLET PO SCH (12:34)
[2021-02-28] MEDS: MAGNESIUM OXIDE 400 MG TABLET PO SCH ×2 (12:34→20:35)
[2021-02-28] MEDS: GABAPENTIN 100 MG CAPSULE PO SCH ×2 (12:34→20:35)
[2021-02-28] MEDS: BENZONATATE 100 MG CAPSULE PO SCH ×3 (12:35→20:35)
[2021-02-28] MEDS: METHOCARBAMOL 500 MG TABLET PO SCH ×2 (12:35→20:35)
[2021-02-28] MEDS: PANTOPRAZOLE 40 MG TABLET PO SCH (12:35)
[2021-02-28] MEDS: MUPIROCIN 2% OINT 22 GM TUBE TOP SCH ×2 (12:36→20:36)
[2021-02-28] MEDS: allopurinoL 300 MG TABLET PO SCH (12:36)
[2021-02-28] MEDS: BUDESONIDE/FORMOTEROL 160-4.5 INHALER 6 GM INH SCH ×2 (12:36→20:36)
[2021-02-28 13:23] LABS: Lymphocytes 4 % (20-55); Microcytosis 1+; Segmented Neutrophils 95 % (50-85); Total Cells Counted 100
[2021-02-28] MEDS: MEROPENEM 500 MG in SODIUM CHLORIDE 0.9% 100 ML IV SCH ×2 (15:52→20:35)
[2021-02-28] MEDS: INSULIN GLARGINE 100 UNIT/ML SUBCUT SCH (20:35)
[2021-02-28] MEDS: AMITRIPTYLINE 25 MG TABLET PO SCH (20:35)
[2021-03-01] MEDS: ALBUTEROL/IPRATROPIUM 3 ML NEB RESP TX SCH ×4 (02:15→20:22)
[2021-03-01] MEDS: CLINDAMYCIN INJ 300 MG/50 ML PREMIX IV SCH ×3 (02:46→18:13)
[2021-03-01] MEDS: MEROPENEM 500 MG in SODIUM CHLORIDE 0.9% 100 ML IV SCH ×3 (03:24→20:19)
[2021-03-01 04:06] LABS: Hematocrit 33.5 VOL% (35.7-47.0); Hemoglobin 10.8 GM/DL (12.0-16.0); Immature Granulocytes Absolute 0.45 #; Lymphocytes % 4.6 % (21.3-54.2); Mean Corpuscular HGB Conc 32.2 GM/DL (32-36); Mean Corpuscular Volume 101.8 FL (87-102); Mean Platelet Volume 10.4 FL (9.6-12.0); Monocytes % 1.6 % (1.7-12.7); Neutrophils % 91.8 % (38.7-73.9); Platelet Count 263 T/CUMM (130-400); Red Blood Count 3.29 MC/CUMM (3.8-5.5); White Blood Count 22.1 T/CUMM (4-12)
[2021-03-01 04:26] LABS: Calcium 9.2 MG/DL (8.5-10.1); Potassium 5.1 MMOL/L (3.5-5.1)
[2021-03-01 04:31] LABS: Hypochromasia 1+; Lymphocytes 6 % (20-55); Microcytosis 1+; Platelet Estimate Adequate; Segmented Neutrophils 94 % (50-85); Total Cells Counted 100
[2021-03-01] MEDS: methylPREDNISolone SOD SUC 40 MG/1 ML VIAL IV SCH ×2 (05:48→18:14)
[2021-03-01] MEDS: ACYCLOVIR 5% OINT 15 GM TUBE TOP SCH ×5 (05:48→21:15)
[2021-03-01] MEDS ORDERED: methylPREDNISolone SOD SUC 40 MG/1 ML VIAL IV SCH (07:30)
[2021-03-01] MEDS ORDERED: predniSONE 20 MG TABLET PO SCH (09:00)
[2021-03-01] MEDS: allopurinoL 300 MG TABLET PO SCH (10:27)
[2021-03-01] MEDS: NEBIVOLOL 5 MG TABLET PO SCH (10:27)
[2021-03-01] MEDS: MAGNESIUM OXIDE 400 MG TABLET PO SCH ×2 (10:28→20:20)
[2021-03-01] MEDS: amLODIPine 10 MG TABLET PO SCH (10:28)
[2021-03-01] MEDS: ATORVASTATIN 40 MG TABLET PO SCH (10:28)
[2021-03-01] MEDS: HYOSCYAMINE 0.125 MG TABLET PO SCH ×3 (10:28→20:22)
[2021-03-01] MEDS: POTASSIUM CHLORIDE 20 MEQ TABLET PO SCH ×2 (10:28→20:20)
[2021-03-01] MEDS: OMEGA 3 ACID ETHYL ESTERS 1 GM CAPSULE PO SCH ×2 (10:28→20:21)
[2021-03-01] MEDS: METHOCARBAMOL 500 MG TABLET PO SCH ×2 (10:28→20:20)
[2021-03-01] MEDS: BUDESONIDE/FORMOTEROL 160-4.5 INHALER 6 GM INH SCH ×2 (10:29→20:23)
[2021-03-01] MEDS: IRON (CARBONYL)/VIT C/B12/FA TABLET PO SCH (10:29)
[2021-03-01] MEDS: BENZONATATE 100 MG CAPSULE PO SCH ×3 (10:29→20:20)
[2021-03-01] MEDS: POLYETHYLENE GLYCOL POWDER 17 GM PACK PO SCH (10:29)
[2021-03-01] MEDS: OXYBUTYNIN XL 5 MG TABLET PO SCH (10:30)
[2021-03-01] MEDS: MUPIROCIN 2% OINT 22 GM TUBE TOP SCH ×2 (10:31→20:23)
[2021-03-01] MEDS: GABAPENTIN 100 MG CAPSULE PO SCH ×2 (10:34→20:20)
[2021-03-01] MEDS: PANTOPRAZOLE 40 MG TABLET PO SCH (10:34)
[2021-03-01] MEDS: INSULIN LISPRO 100 UNIT/ML SUBCUT SCH ×5 (12:28→21:14)
[2021-03-01] MEDS: FERRIC GLUCONATE COMPLEX 125 MG in SODIUM CHLORIDE 0.9% 100 ML IV SCH (16:46)
[2021-03-01] MEDS: AMITRIPTYLINE 25 MG TABLET PO SCH (20:20)
[2021-03-01] MEDS: INSULIN GLARGINE 100 UNIT/ML SUBCUT SCH (21:13)
[2021-03-02] MEDS: ALBUTEROL/IPRATROPIUM 3 ML NEB RESP TX SCH ×4 (00:40→19:35)
[2021-03-02] MEDS: CLINDAMYCIN INJ 300 MG/50 ML PREMIX IV SCH ×3 (03:08→18:33)
[2021-03-02] MEDS: MEROPENEM 500 MG in SODIUM CHLORIDE 0.9% 100 ML IV SCH ×3 (04:09→21:04)
[2021-03-02 04:23] LABS: Basophils % 0.1 % (0.0-0.8); Hematocrit 32.1 VOL% (35.7-47.0); Immature Granulocytes % 1.3 %; Immature Granulocytes Absolute 0.25 #; Lymphocytes # 0.8 10*3/uL (1.4-4.0); Lymphocytes % 4.1 % (21.3-54.2); Mean Corpuscular HGB Conc 31.2 GM/DL (32-36); Mean Corpuscular Volume 103.2 FL (87-102); Mean Platelet Volume 10.4 FL (9.6-12.0); Monocytes % 1.8 % (1.7-12.7); Neutrophils % 92.7 % (38.7-73.9); Platelet Count 277 T/CUMM (130-400); Red Blood Count 3.11 MC/CUMM (3.8-5.5); Red Cell Distribution Width 14.9 % (9.3-17.3); White Blood Count 19.4 T/CUMM (4-12)
[2021-03-02 04:46] LABS: Calcium 9.1 MG/DL (8.5-10.1); Osmolality,Calculated 287.7 MOS/KG (273-304); Potassium 4.9 MMOL/L (3.5-5.1)
[2021-03-02] MEDS: methylPREDNISolone SOD SUC 40 MG/1 ML VIAL IV SCH ×2 (05:09→17:07)
[2021-03-02] MEDS: MORPHINE 2 MG/1 ML SYRINGE IV PRN ×2 (05:13→21:04)
[2021-03-02] MEDS: ACYCLOVIR 5% OINT 15 GM TUBE TOP SCH ×5 (05:15→21:06)
[2021-03-02 07:11] LABS: Band Neutrophils 4 % (0-10); Lymphocytes 7 % (20-55); Platelet Estimate Normal; Segmented Neutrophils 84 % (50-85); Total Cells Counted 100
[2021-03-02 07:14] LABS: Anisocytosis 2+
[2021-03-02 07:15] LABS: Macrocytosis 1+
[2021-03-02] MEDS: INSULIN LISPRO 100 UNIT/ML SUBCUT SCH ×5 (09:11→21:05)
[2021-03-02] MEDS: MUPIROCIN 2% OINT 22 GM TUBE TOP SCH ×2 (09:12→21:06)
[2021-03-02] MEDS: POTASSIUM CHLORIDE 20 MEQ TABLET PO SCH ×2 (09:12→21:04)
[2021-03-02] MEDS: IRON (CARBONYL)/VIT C/B12/FA TABLET PO SCH (09:12)
[2021-03-02] MEDS: NEBIVOLOL 5 MG TABLET PO SCH (09:12)
[2021-03-02] MEDS: BUDESONIDE/FORMOTEROL 160-4.5 INHALER 6 GM INH SCH ×2 (09:12→21:08)
[2021-03-02] MEDS: ATORVASTATIN 40 MG TABLET PO SCH (09:12)
[2021-03-02] MEDS: allopurinoL 300 MG TABLET PO SCH (09:13)
[2021-03-02] MEDS: amLODIPine 10 MG TABLET PO SCH (09:13)
[2021-03-02] MEDS: BENZONATATE 100 MG CAPSULE PO SCH ×3 (09:13→21:04)
[2021-03-02] MEDS: GABAPENTIN 100 MG CAPSULE PO SCH ×2 (09:13→21:05)
[2021-03-02] MEDS: PANTOPRAZOLE 40 MG TABLET PO SCH (09:13)
[2021-03-02] MEDS: MAGNESIUM OXIDE 400 MG TABLET PO SCH ×2 (09:13→21:08)
[2021-03-02] MEDS: METHOCARBAMOL 500 MG TABLET PO SCH ×2 (09:13→21:05)
[2021-03-02] MEDS: OXYBUTYNIN XL 5 MG TABLET PO SCH (09:13)
[2021-03-02] MEDS: HYOSCYAMINE 0.125 MG TABLET PO SCH ×3 (09:13→21:04)
[2021-03-02] MEDS: OMEGA 3 ACID ETHYL ESTERS 1 GM CAPSULE PO SCH ×2 (09:13→21:04)
[2021-03-02] MEDS: POLYETHYLENE GLYCOL POWDER 17 GM PACK PO SCH (09:14)
[2021-03-02] MEDS: FERRIC GLUCONATE COMPLEX 125 MG in SODIUM CHLORIDE 0.9% 100 ML IV SCH (09:16)
[2021-03-02] MEDS: INSULIN GLARGINE 100 UNIT/ML SUBCUT SCH (21:05)
[2021-03-02] MEDS: AMITRIPTYLINE 25 MG TABLET PO SCH (21:05)
[2021-03-03] MEDS: ALBUTEROL/IPRATROPIUM 3 ML NEB RESP TX SCH ×4 (00:14→19:37)
[2021-03-03] MEDS: CLINDAMYCIN INJ 300 MG/50 ML PREMIX IV SCH ×3 (03:48→18:28)
[2021-03-03 05:28] LABS: Basophils % 0.2 % (0.0-0.8); Hematocrit 32.8 VOL% (35.7-47.0); Immature Granulocytes % 1.1 %; Lymphocytes # 1.3 10*3/uL (1.4-4.0); Lymphocytes % 6.7 % (21.3-54.2); Mean Corpuscular HGB Conc 30.5 GM/DL (32-36); Mean Corpuscular Volume 105.5 FL (87-102); Monocytes % 3.2 % (1.7-12.7); Neutrophils % 88.8 % (38.7-73.9); Platelet Count 276 T/CUMM (130-400); Red Blood Count 3.11 MC/CUMM (3.8-5.5); Red Cell Distribution Width 14.9 % (9.3-17.3)
[2021-03-03 05:53] LABS: Calcium 9.2 MG/DL (8.5-10.1); Osmolality,Calculated 272.4 MOS/KG (273-304); Potassium 5.3 MMOL/L (3.5-5.1)
[2021-03-03] MEDS: MEROPENEM 500 MG in SODIUM CHLORIDE 0.9% 100 ML IV SCH ×3 (05:56→20:59)
[2021-03-03] MEDS: methylPREDNISolone SOD SUC 40 MG/1 ML VIAL IV SCH ×2 (05:56→18:29)
[2021-03-03] MEDS: ACYCLOVIR 5% OINT 15 GM TUBE TOP SCH ×5 (05:57→21:05)
[2021-03-03] MEDS: INSULIN LISPRO 100 UNIT/ML SUBCUT SCH ×5 (08:18→21:00)
[2021-03-03] MEDS: PANTOPRAZOLE 40 MG TABLET PO SCH (08:19)
[2021-03-03] MEDS: METHOCARBAMOL 500 MG TABLET PO SCH ×2 (08:19→20:58)
[2021-03-03] MEDS: OXYBUTYNIN XL 5 MG TABLET PO SCH (08:19)
[2021-03-03] MEDS: OMEGA 3 ACID ETHYL ESTERS 1 GM CAPSULE PO SCH ×2 (08:19→20:58)
[2021-03-03] MEDS: IRON (CARBONYL)/VIT C/B12/FA TABLET PO SCH (08:19)
[2021-03-03] MEDS: HYOSCYAMINE 0.125 MG TABLET PO SCH ×3 (08:19→20:58)
[2021-03-03] MEDS: NEBIVOLOL 5 MG TABLET PO SCH (08:19)
[2021-03-03] MEDS: MAGNESIUM OXIDE 400 MG TABLET PO SCH ×2 (08:19→20:58)
[2021-03-03] MEDS: ATORVASTATIN 40 MG TABLET PO SCH (08:19)
[2021-03-03] MEDS: amLODIPine 10 MG TABLET PO SCH (08:19)
[2021-03-03] MEDS: POLYETHYLENE GLYCOL POWDER 17 GM PACK PO SCH (08:19)
[2021-03-03] MEDS: BENZONATATE 100 MG CAPSULE PO SCH ×3 (08:19→20:58)
[2021-03-03] MEDS: allopurinoL 300 MG TABLET PO SCH (08:19)
[2021-03-03] MEDS: POTASSIUM CHLORIDE 20 MEQ TABLET PO SCH ×3 (08:20→20:58)
[2021-03-03] MEDS: GABAPENTIN 100 MG CAPSULE PO SCH ×2 (08:20→20:58)
[2021-03-03] MEDS: BUDESONIDE/FORMOTEROL 160-4.5 INHALER 6 GM INH SCH ×2 (08:20→20:59)
[2021-03-03] MEDS: MUPIROCIN 2% OINT 22 GM TUBE TOP SCH ×2 (08:20→20:59)
[2021-03-03] MEDS ORDERED: NYSTATIN 500,000 UNIT/5 ML UDCUP SWISH/SWAL SCH (09:24)
[2021-03-03] MEDS: FERRIC GLUCONATE COMPLEX 125 MG in SODIUM CHLORIDE 0.9% 100 ML IV SCH (10:16)
[2021-03-03] MEDS: NYSTATIN 500,000 UNIT/5 ML UDCUP SWISH/SWAL SCH ×3 (12:46→20:59)
[2021-03-03] MEDS: MORPHINE 2 MG/1 ML SYRINGE IV PRN (20:57)
[2021-03-03] MEDS: AMITRIPTYLINE 25 MG TABLET PO SCH (20:58)
[2021-03-03] MEDS: INSULIN GLARGINE 100 UNIT/ML SUBCUT SCH (21:00)
[2021-03-04] MEDS: CLINDAMYCIN INJ 300 MG/50 ML PREMIX IV SCH ×3 (03:10→19:21)
[2021-03-04] MEDS: MEROPENEM 500 MG in SODIUM CHLORIDE 0.9% 100 ML IV SCH ×3 (04:32→21:08)
[2021-03-04] MEDS: methylPREDNISolone SOD SUC 40 MG/1 ML VIAL IV SCH ×2 (05:21→17:48)
[2021-03-04 05:22] LABS: Basophils % 0.1 % (0.0-0.8); Hematocrit 30.6 VOL% (35.7-47.0); Hemoglobin 9.6 GM/DL (12.0-16.0); Immature Granulocytes % 0.9 %; Immature Granulocytes Absolute 0.15 #; Lymphocytes # 1.3 10*3/uL (1.4-4.0); Lymphocytes % 8.4 % (21.3-54.2); Mean Corpuscular HGB Conc 31.4 GM/DL (32-36); Mean Corpuscular Volume 102.3 FL (87-102); Mean Platelet Volume 10.3 FL (9.6-12.0); Monocytes % 4.5 % (1.7-12.7); Neutrophils % 86.1 % (38.7-73.9); Platelet Count 284 T/CUMM (130-400); Red Blood Count 2.99 MC/CUMM (3.8-5.5); Red Cell Distribution Width 14.9 % (9.3-17.3); White Blood Count 15.9 T/CUMM (4-12)
[2021-03-04] MEDS: ACYCLOVIR 5% OINT 15 GM TUBE TOP SCH ×5 (05:23→21:10)
[2021-03-04 05:41] LABS: Calcium 9.3 MG/DL (8.5-10.1); Osmolality,Calculated 276.8 MOS/KG (273-304); Potassium 4.7 MMOL/L (3.5-5.1)
[2021-03-04] MEDS: INSULIN LISPRO 100 UNIT/ML SUBCUT SCH ×5 (06:54→21:32)
[2021-03-04] MEDS: ALBUTEROL/IPRATROPIUM 3 ML NEB RESP TX SCH ×4 (07:19→19:41)
[2021-03-04] MEDS: POLYETHYLENE GLYCOL POWDER 17 GM PACK PO SCH (10:56)
[2021-03-04] MEDS: IRON (CARBONYL)/VIT C/B12/FA TABLET PO SCH (10:57)
[2021-03-04] MEDS: NEBIVOLOL 5 MG TABLET PO SCH (10:57)
[2021-03-04] MEDS: POTASSIUM CHLORIDE 20 MEQ TABLET PO SCH ×2 (10:57→21:09)
[2021-03-04] MEDS: OXYBUTYNIN XL 5 MG TABLET PO SCH (10:57)
[2021-03-04] MEDS: OMEGA 3 ACID ETHYL ESTERS 1 GM CAPSULE PO SCH ×2 (10:58→21:09)
[2021-03-04] MEDS: ATORVASTATIN 40 MG TABLET PO SCH (10:58)
[2021-03-04] MEDS: HYOSCYAMINE 0.125 MG TABLET PO SCH ×3 (10:58→21:09)
[2021-03-04] MEDS: MAGNESIUM OXIDE 400 MG TABLET PO SCH ×2 (10:58→21:09)
[2021-03-04] MEDS: GABAPENTIN 100 MG CAPSULE PO SCH ×2 (10:59→21:09)
[2021-03-04] MEDS: NYSTATIN 500,000 UNIT/5 ML UDCUP SWISH/SWAL SCH ×4 (11:00→21:09)
[2021-03-04] MEDS: METHOCARBAMOL 500 MG TABLET PO SCH ×2 (11:00→21:10)
[2021-03-04] MEDS: amLODIPine 10 MG TABLET PO SCH (11:00)
[2021-03-04] MEDS: PANTOPRAZOLE 40 MG TABLET PO SCH (11:00)
[2021-03-04] MEDS: FERRIC GLUCONATE COMPLEX 125 MG in SODIUM CHLORIDE 0.9% 100 ML IV SCH (11:01)
[2021-03-04] MEDS: allopurinoL 300 MG TABLET PO SCH (11:01)
[2021-03-04] MEDS: BENZONATATE 100 MG CAPSULE PO SCH ×3 (11:01→21:09)
[2021-03-04] MEDS: MUPIROCIN 2% OINT 22 GM TUBE TOP SCH ×2 (11:07→21:10)
[2021-03-04] MEDS: BUDESONIDE/FORMOTEROL 160-4.5 INHALER 6 GM INH SCH ×2 (11:07→21:11)
[2021-03-04] MEDS: AMITRIPTYLINE 25 MG TABLET PO SCH (21:09)
[2021-03-04] MEDS: INSULIN GLARGINE 100 UNIT/ML SUBCUT SCH (21:12)
[2021-03-05] MEDS: ALBUTEROL/IPRATROPIUM 3 ML NEB RESP TX SCH ×4 (01:35→20:18)
[2021-03-05] MEDS: CLINDAMYCIN INJ 300 MG/50 ML PREMIX IV SCH ×3 (02:53→19:22)
[2021-03-05] MEDS: MEROPENEM 500 MG in SODIUM CHLORIDE 0.9% 100 ML IV SCH ×3 (03:48→20:52)
[2021-03-05] MEDS: methylPREDNISolone SOD SUC 40 MG/1 ML VIAL IV SCH ×2 (05:22→17:24)
[2021-03-05] MEDS: ACYCLOVIR 5% OINT 15 GM TUBE TOP SCH ×5 (05:24→21:31)
[2021-03-05] MEDS: INSULIN LISPRO 100 UNIT/ML SUBCUT SCH ×5 (09:24→21:30)
[2021-03-05] MEDS: NEBIVOLOL 5 MG TABLET PO SCH (09:26)
[2021-03-05] MEDS: POTASSIUM CHLORIDE 20 MEQ TABLET PO SCH ×2 (09:26→20:51)
[2021-03-05] MEDS: OXYBUTYNIN XL 5 MG TABLET PO SCH (09:26)
[2021-03-05] MEDS: IRON (CARBONYL)/VIT C/B12/FA TABLET PO SCH (09:26)
[2021-03-05] MEDS: OMEGA 3 ACID ETHYL ESTERS 1 GM CAPSULE PO SCH ×2 (09:27→20:50)
[2021-03-05] MEDS: HYOSCYAMINE 0.125 MG TABLET PO SCH ×3 (09:27→20:51)
[2021-03-05] MEDS: ATORVASTATIN 40 MG TABLET PO SCH (09:27)
[2021-03-05] MEDS: MAGNESIUM OXIDE 400 MG TABLET PO SCH ×2 (09:27→20:51)
[2021-03-05] MEDS: amLODIPine 10 MG TABLET PO SCH (09:28)
[2021-03-05] MEDS: GABAPENTIN 100 MG CAPSULE PO SCH ×2 (09:28→20:50)
[2021-03-05] MEDS: POLYETHYLENE GLYCOL POWDER 17 GM PACK PO SCH (09:28)
[2021-03-05] MEDS: NYSTATIN 500,000 UNIT/5 ML UDCUP SWISH/SWAL SCH ×4 (09:28→20:51)
[2021-03-05] MEDS: BUDESONIDE/FORMOTEROL 160-4.5 INHALER 6 GM INH SCH ×2 (09:29→20:51)
[2021-03-05] MEDS: PANTOPRAZOLE 40 MG TABLET PO SCH (09:29)
[2021-03-05] MEDS: METHOCARBAMOL 500 MG TABLET PO SCH ×2 (09:29→20:50)
[2021-03-05] MEDS ORDERED: DOXYCYCLINE HYCLATE INJ 200 MG, LIDOCAINE 1% INJ 20 ML in STERILE WATER INJ 30 ML INTRAPLEUR ONE (09:30)
[2021-03-05] MEDS: allopurinoL 300 MG TABLET PO SCH (09:30)
[2021-03-05] MEDS: FERRIC GLUCONATE COMPLEX 125 MG in SODIUM CHLORIDE 0.9% 100 ML IV SCH (09:30)
[2021-03-05] MEDS: MUPIROCIN 2% OINT 22 GM TUBE TOP SCH ×2 (09:30→20:51)
[2021-03-05] MEDS: BENZONATATE 100 MG CAPSULE PO SCH ×3 (09:30→20:51)
[2021-03-05] MEDS: MORPHINE 2 MG/1 ML SYRINGE IV PRN (13:43)
[2021-03-05] MEDS: AMITRIPTYLINE 25 MG TABLET PO SCH (20:50)
[2021-03-05] MEDS: INSULIN GLARGINE 100 UNIT/ML SUBCUT SCH (21:31)
[2021-03-06] MEDS: ALBUTEROL/IPRATROPIUM 3 ML NEB RESP TX SCH ×4 (00:24→19:11)
[2021-03-06] MEDS: CLINDAMYCIN INJ 300 MG/50 ML PREMIX IV SCH ×3 (02:58→18:05)
[2021-03-06] MEDS: MEROPENEM 500 MG in SODIUM CHLORIDE 0.9% 100 ML IV SCH ×3 (03:41→21:31)
[2021-03-06 05:15] LABS: Basophils % 0.2 % (0.0-0.8); Hematocrit 31.3 VOL% (35.7-47.0); Hemoglobin 9.9 GM/DL (12.0-16.0); Immature Granulocytes % 1.7 %; Immature Granulocytes Absolute 0.21 #; Lymphocytes # 1.1 10*3/uL (1.4-4.0); Lymphocytes % 8.7 % (21.3-54.2); Mean Corpuscular HGB Conc 31.6 GM/DL (32-36); Mean Corpuscular Volume 102.6 FL (87-102); Mean Platelet Volume 10.5 FL (9.6-12.0); Neutrophils % 85.4 % (38.7-73.9); Platelet Count 270 T/CUMM (130-400); Red Blood Count 3.05 MC/CUMM (3.8-5.5); Red Cell Distribution Width 14.9 % (9.3-17.3); White Blood Count 12.7 T/CUMM (4-12)
[2021-03-06] MEDS: methylPREDNISolone SOD SUC 40 MG/1 ML VIAL IV SCH ×2 (05:23→18:05)
[2021-03-06] MEDS: ACYCLOVIR 5% OINT 15 GM TUBE TOP SCH ×5 (05:24→21:32)
[2021-03-06 05:46] LABS: Calcium 8.8 MG/DL (8.5-10.1); Osmolality,Calculated 282.1 MOS/KG (273-304); Potassium 4.9 MMOL/L (3.5-5.1)
[2021-03-06] MEDS: INSULIN LISPRO 100 UNIT/ML SUBCUT SCH ×5 (09:31→21:29)
[2021-03-06] MEDS: MUPIROCIN 2% OINT 22 GM TUBE TOP SCH ×2 (09:32→21:32)
[2021-03-06] MEDS: ATORVASTATIN 40 MG TABLET PO SCH (09:33)
[2021-03-06] MEDS: POTASSIUM CHLORIDE 20 MEQ TABLET PO SCH ×2 (09:33→21:28)
[2021-03-06] MEDS: NEBIVOLOL 5 MG TABLET PO SCH (09:33)
[2021-03-06] MEDS: MAGNESIUM OXIDE 400 MG TABLET PO SCH ×2 (09:33→21:28)
[2021-03-06] MEDS: OMEGA 3 ACID ETHYL ESTERS 1 GM CAPSULE PO SCH ×2 (09:33→21:29)
[2021-03-06] MEDS: NYSTATIN 500,000 UNIT/5 ML UDCUP SWISH/SWAL SCH ×4 (09:33→21:30)
[2021-03-06] MEDS: IRON (CARBONYL)/VIT C/B12/FA TABLET PO SCH (09:33)
[2021-03-06] MEDS: HYOSCYAMINE 0.125 MG TABLET PO SCH ×3 (09:33→21:29)
[2021-03-06] MEDS: allopurinoL 300 MG TABLET PO SCH (09:33)
[2021-03-06] MEDS: OXYBUTYNIN XL 5 MG TABLET PO SCH (09:33)
[2021-03-06] MEDS: BENZONATATE 100 MG CAPSULE PO SCH ×3 (09:33→21:28)
[2021-03-06] MEDS: amLODIPine 10 MG TABLET PO SCH (09:34)
[2021-03-06] MEDS: PANTOPRAZOLE 40 MG TABLET PO SCH (09:34)
[2021-03-06] MEDS: GABAPENTIN 100 MG CAPSULE PO SCH ×2 (09:34→21:29)
[2021-03-06] MEDS: METHOCARBAMOL 500 MG TABLET PO SCH ×2 (09:34→21:28)
[2021-03-06] MEDS: POLYETHYLENE GLYCOL POWDER 17 GM PACK PO SCH (09:35)
[2021-03-06] MEDS: BUDESONIDE/FORMOTEROL 160-4.5 INHALER 6 GM INH SCH ×2 (09:35→21:32)
[2021-03-06] MEDS: FERRIC GLUCONATE COMPLEX 125 MG in SODIUM CHLORIDE 0.9% 100 ML IV SCH (09:54)
[2021-03-06] MEDS: AMITRIPTYLINE 25 MG TABLET PO SCH (21:29)
[2021-03-06] MEDS: INSULIN GLARGINE 100 UNIT/ML SUBCUT SCH (21:30)
[2021-03-07] MEDS: ALBUTEROL/IPRATROPIUM 3 ML NEB RESP TX SCH ×4 (00:22→19:21)
[2021-03-07] MEDS: CLINDAMYCIN INJ 300 MG/50 ML PREMIX IV SCH ×3 (03:26→18:08)
[2021-03-07] MEDS: MEROPENEM 500 MG in SODIUM CHLORIDE 0.9% 100 ML IV SCH ×3 (03:59→21:27)
[2021-03-07 05:07] LABS: Basophils % 0.1 % (0.0-0.8); Hemoglobin 10.2 GM/DL (12.0-16.0); Immature Granulocytes % 1.9 %; Immature Granulocytes Absolute 0.22 #; Lymphocytes # 1.3 10*3/uL (1.4-4.0); Lymphocytes % 10.8 % (21.3-54.2); Mean Corpuscular HGB Conc 31.9 GM/DL (32-36); Mean Corpuscular Volume 102.2 FL (87-102); Mean Platelet Volume 10.1 FL (9.6-12.0); Monocytes % 4.6 % (1.7-12.7); Neutrophils % 82.6 % (38.7-73.9); Platelet Count 264 T/CUMM (130-400); Red Blood Count 3.13 MC/CUMM (3.8-5.5); Red Cell Distribution Width 15.1 % (9.3-17.3); White Blood Count 11.9 T/CUMM (4-12)
[2021-03-07 05:46] LABS: Calcium 9.2 MG/DL (8.5-10.1); Osmolality,Calculated 279.8 MOS/KG (273-304); Potassium 4.7 MMOL/L (3.5-5.1)
[2021-03-07] MEDS: methylPREDNISolone SOD SUC 40 MG/1 ML VIAL IV SCH ×2 (06:10→18:07)
[2021-03-07] MEDS: ACYCLOVIR 5% OINT 15 GM TUBE TOP SCH ×5 (06:10→21:32)
[2021-03-07] MEDS: INSULIN LISPRO 100 UNIT/ML SUBCUT SCH ×5 (09:25→21:29)
[2021-03-07] MEDS: METHOCARBAMOL 500 MG TABLET PO SCH ×2 (09:26→21:30)
[2021-03-07] MEDS: NYSTATIN 500,000 UNIT/5 ML UDCUP SWISH/SWAL SCH ×4 (09:26→21:30)
[2021-03-07] MEDS: POTASSIUM CHLORIDE 20 MEQ TABLET PO SCH ×2 (09:26→21:34)
[2021-03-07] MEDS: NEBIVOLOL 5 MG TABLET PO SCH (09:26)
[2021-03-07] MEDS: allopurinoL 300 MG TABLET PO SCH (09:26)
[2021-03-07] MEDS: MUPIROCIN 2% OINT 22 GM TUBE TOP SCH ×2 (09:26→21:35)
[2021-03-07] MEDS: IRON (CARBONYL)/VIT C/B12/FA TABLET PO SCH (09:27)
[2021-03-07] MEDS: ATORVASTATIN 40 MG TABLET PO SCH (09:27)
[2021-03-07] MEDS: PANTOPRAZOLE 40 MG TABLET PO SCH (09:27)
[2021-03-07] MEDS: MAGNESIUM OXIDE 400 MG TABLET PO SCH ×2 (09:27→21:30)
[2021-03-07] MEDS: amLODIPine 10 MG TABLET PO SCH (09:27)
[2021-03-07] MEDS: BENZONATATE 100 MG CAPSULE PO SCH ×3 (09:27→21:30)
[2021-03-07] MEDS: GABAPENTIN 100 MG CAPSULE PO SCH ×2 (09:27→21:31)
[2021-03-07] MEDS: HYOSCYAMINE 0.125 MG TABLET PO SCH ×3 (09:27→21:30)
[2021-03-07] MEDS: OXYBUTYNIN XL 5 MG TABLET PO SCH (09:27)
[2021-03-07] MEDS: OMEGA 3 ACID ETHYL ESTERS 1 GM CAPSULE PO SCH ×2 (09:27→21:31)
[2021-03-07] MEDS: POLYETHYLENE GLYCOL POWDER 17 GM PACK PO SCH (09:28)
[2021-03-07] MEDS: BUDESONIDE/FORMOTEROL 160-4.5 INHALER 6 GM INH SCH ×2 (09:28→21:32)
[2021-03-07] MEDS: FERRIC GLUCONATE COMPLEX 125 MG in SODIUM CHLORIDE 0.9% 100 ML IV SCH (10:07)
[2021-03-07] MEDS: INSULIN GLARGINE 100 UNIT/ML SUBCUT SCH (21:28)
[2021-03-07] MEDS: AMITRIPTYLINE 25 MG TABLET PO SCH (21:32)
[2021-03-08] MEDS: ALBUTEROL/IPRATROPIUM 3 ML NEB RESP TX SCH ×4 (00:05→19:30)
[2021-03-08] MEDS: CLINDAMYCIN INJ 300 MG/50 ML PREMIX IV SCH ×3 (02:44→18:37)
[2021-03-08] MEDS: MEROPENEM 500 MG in SODIUM CHLORIDE 0.9% 100 ML IV SCH ×3 (05:08→21:29)
[2021-03-08] MEDS: methylPREDNISolone SOD SUC 40 MG/1 ML VIAL IV SCH (06:09)
[2021-03-08] MEDS: ACYCLOVIR 5% OINT 15 GM TUBE TOP SCH ×5 (06:12→22:15)
[2021-03-08 06:16] LABS: Basophils % 0.1 % (0.0-0.8); Hematocrit 32.8 VOL% (35.7-47.0); Hemoglobin 10.4 GM/DL (12.0-16.0); Immature Granulocytes % 1.6 %; Immature Granulocytes Absolute 0.18 #; Lymphocytes # 1.5 10*3/uL (1.4-4.0); Lymphocytes % 13.7 % (21.3-54.2); Mean Corpuscular HGB Conc 31.7 GM/DL (32-36); Mean Corpuscular Volume 102.5 FL (87-102); Mean Platelet Volume 9.8 FL (9.6-12.0); Monocytes % 4.5 % (1.7-12.7); Neutrophils % 80.1 % (38.7-73.9); Platelet Count 253 T/CUMM (130-400); Red Cell Distribution Width 14.9 % (9.3-17.3); White Blood Count 11.1 T/CUMM (4-12)
[2021-03-08 06:32] LABS: Calcium 9.1 MG/DL (8.5-10.1); Osmolality,Calculated 278.2 MOS/KG (273-304)
[2021-03-08] MEDS: BENZONATATE 100 MG CAPSULE PO SCH ×3 (08:52→21:28)
[2021-03-08] MEDS: POLYETHYLENE GLYCOL POWDER 17 GM PACK PO SCH (08:52)
[2021-03-08] MEDS: METHOCARBAMOL 500 MG TABLET PO SCH ×2 (08:52→21:28)
[2021-03-08] MEDS: IRON (CARBONYL)/VIT C/B12/FA TABLET PO SCH (08:52)
[2021-03-08] MEDS: ATORVASTATIN 40 MG TABLET PO SCH (08:53)
[2021-03-08] MEDS: NYSTATIN 500,000 UNIT/5 ML UDCUP SWISH/SWAL SCH ×4 (08:53→21:28)
[2021-03-08] MEDS: MAGNESIUM OXIDE 400 MG TABLET PO SCH ×2 (08:53→21:27)
[2021-03-08] MEDS: NEBIVOLOL 5 MG TABLET PO SCH (08:53)
[2021-03-08] MEDS: GABAPENTIN 100 MG CAPSULE PO SCH ×2 (08:53→21:27)
[2021-03-08] MEDS: OMEGA 3 ACID ETHYL ESTERS 1 GM CAPSULE PO SCH ×2 (08:53→21:34)
[2021-03-08] MEDS: amLODIPine 10 MG TABLET PO SCH (08:53)
[2021-03-08] MEDS: OXYBUTYNIN XL 5 MG TABLET PO SCH (08:53)
[2021-03-08] MEDS: allopurinoL 300 MG TABLET PO SCH (08:53)
[2021-03-08] MEDS: INSULIN LISPRO 100 UNIT/ML SUBCUT SCH ×5 (08:53→21:29)
[2021-03-08] MEDS: HYOSCYAMINE 0.125 MG TABLET PO SCH ×3 (08:53→21:27)
[2021-03-08] MEDS: PANTOPRAZOLE 40 MG TABLET PO SCH (08:53)
[2021-03-08] MEDS: POTASSIUM CHLORIDE 20 MEQ TABLET PO SCH ×2 (08:53→21:28)
[2021-03-08] MEDS: MUPIROCIN 2% OINT 22 GM TUBE TOP SCH ×2 (08:54→21:29)
[2021-03-08] MEDS: BUDESONIDE/FORMOTEROL 160-4.5 INHALER 6 GM INH SCH ×2 (08:55→21:31)
[2021-03-08] MEDS: AMITRIPTYLINE 25 MG TABLET PO SCH (21:28)
[2021-03-08] MEDS: INSULIN GLARGINE 100 UNIT/ML SUBCUT SCH (21:28)
[2021-03-08] MEDS: ENOXAPARIN 40 MG/0.4 ML SYRINGE SUBCUT SCH (21:34)
[2021-03-09] MEDS: ALBUTEROL/IPRATROPIUM 3 ML NEB RESP TX SCH ×4 (00:31→20:21)
[2021-03-09] MEDS: CLINDAMYCIN INJ 300 MG/50 ML PREMIX IV SCH ×3 (02:03→18:22)
[2021-03-09] MEDS: MEROPENEM 500 MG in SODIUM CHLORIDE 0.9% 100 ML IV SCH ×3 (03:56→19:40)
[2021-03-09] MEDS: ACYCLOVIR 5% OINT 15 GM TUBE TOP SCH ×5 (05:50→21:46)
[2021-03-09 05:57] LABS: Basophils % 0.1 % (0.0-0.8); Eosinophils # 0.1 10*3/uL (0.0-0.87); Eosinophils % 0.5 % (0.00-10.9); Hematocrit 34.5 VOL% (35.7-47.0); Immature Granulocytes % 1.4 %; Immature Granulocytes Absolute 0.21 #; Lymphocytes % 20.6 % (21.3-54.2); Mean Corpuscular HGB Conc 31.9 GM/DL (32-36); Mean Corpuscular Volume 101.2 FL (87-102); Mean Platelet Volume 9.5 FL (9.6-12.0); Monocytes % 4.6 % (1.7-12.7); Neutrophils % 72.8 % (38.7-73.9); Platelet Count 255 T/CUMM (130-400); Red Blood Count 3.41 MC/CUMM (3.8-5.5); Red Cell Distribution Width 15.3 % (9.3-17.3); White Blood Count 14.7 T/CUMM (4-12)
[2021-03-09 06:14] LABS: Osmolality,Calculated 272.1 MOS/KG (273-304); Potassium 4.9 MMOL/L (3.5-5.1)
[2021-03-09] MEDS: INSULIN LISPRO 100 UNIT/ML SUBCUT SCH ×5 (07:24→21:44)
[2021-03-09] MEDS: methylPREDNISolone SOD SUC 40 MG/1 ML VIAL IV SCH (08:20)
[2021-03-09] MEDS: allopurinoL 300 MG TABLET PO SCH (08:20)
[2021-03-09] MEDS: NYSTATIN 500,000 UNIT/5 ML UDCUP SWISH/SWAL SCH ×4 (08:20→21:45)
[2021-03-09] MEDS: MAGNESIUM OXIDE 400 MG TABLET PO SCH ×2 (08:21→21:44)
[2021-03-09] MEDS: IRON (CARBONYL)/VIT C/B12/FA TABLET PO SCH (08:21)
[2021-03-09] MEDS: amLODIPine 10 MG TABLET PO SCH (08:21)
[2021-03-09] MEDS: GABAPENTIN 100 MG CAPSULE PO SCH ×2 (08:21→21:44)
[2021-03-09] MEDS: NEBIVOLOL 5 MG TABLET PO SCH (08:21)
[2021-03-09] MEDS: DOCUSATE SODIUM 100 MG CAPSULE PO PRN (08:21)
[2021-03-09] MEDS: ATORVASTATIN 40 MG TABLET PO SCH (08:21)
[2021-03-09] MEDS: BENZONATATE 100 MG CAPSULE PO SCH ×3 (08:21→21:45)
[2021-03-09] MEDS: PANTOPRAZOLE 40 MG TABLET PO SCH (08:21)
[2021-03-09] MEDS: OXYBUTYNIN XL 5 MG TABLET PO SCH (08:21)
[2021-03-09] MEDS: METHOCARBAMOL 500 MG TABLET PO SCH ×2 (08:21→21:45)
[2021-03-09] MEDS: OMEGA 3 ACID ETHYL ESTERS 1 GM CAPSULE PO SCH ×2 (08:21→21:45)
[2021-03-09] MEDS: HYOSCYAMINE 0.125 MG TABLET PO SCH ×3 (08:21→21:44)
[2021-03-09] MEDS: POTASSIUM CHLORIDE 20 MEQ TABLET PO SCH ×2 (08:21→21:44)
[2021-03-09] MEDS: BUDESONIDE/FORMOTEROL 160-4.5 INHALER 6 GM INH SCH ×2 (08:22→21:45)
[2021-03-09] MEDS: MUPIROCIN 2% OINT 22 GM TUBE TOP SCH ×2 (08:22→21:45)
[2021-03-09] MEDS: POLYETHYLENE GLYCOL POWDER 17 GM PACK PO SCH (08:22)
[2021-03-09] MEDS: ENOXAPARIN 40 MG/0.4 ML SYRINGE SUBCUT SCH (21:43)
[2021-03-09] MEDS: INSULIN GLARGINE 100 UNIT/ML SUBCUT SCH (21:44)
[2021-03-09] MEDS: AMITRIPTYLINE 25 MG TABLET PO SCH (21:45)
[2021-03-10] MEDS: CLINDAMYCIN INJ 300 MG/50 ML PREMIX IV SCH ×2 (03:00→11:36)
[2021-03-10] MEDS: MEROPENEM 500 MG in SODIUM CHLORIDE 0.9% 100 ML IV SCH ×2 (03:27→13:33)
[2021-03-10] MEDS: ALBUTEROL/IPRATROPIUM 3 ML NEB RESP TX SCH ×4 (04:56→19:30)
[2021-03-10] MEDS: ACYCLOVIR 5% OINT 15 GM TUBE TOP SCH ×5 (05:24→21:41)
[2021-03-10 05:32] LABS: Basophils % 0.2 % (0.0-0.8); Eosinophils # 0.1 10*3/uL (0.0-0.87); Eosinophils % 0.6 % (0.00-10.9); Hematocrit 32.4 VOL% (35.7-47.0); Hemoglobin 10.4 GM/DL (12.0-16.0); Immature Granulocytes % 2.1 %; Lymphocytes # 2.9 10*3/uL (1.4-4.0); Lymphocytes % 19.7 % (21.3-54.2); Mean Corpuscular HGB Conc 32.1 GM/DL (32-36); Mean Corpuscular Volume 101.3 FL (87-102); Monocytes % 4.4 % (1.7-12.7); Platelet Count 239 T/CUMM (130-400); Red Cell Distribution Width 15.4 % (9.3-17.3); White Blood Count 14.5 T/CUMM (4-12)
[2021-03-10 06:11] LABS: Calcium 9.2 MG/DL (8.5-10.1); Osmolality,Calculated 273.7 MOS/KG (273-304); Potassium 4.3 MMOL/L (3.5-5.1)
[2021-03-10] MEDS: INSULIN LISPRO 100 UNIT/ML SUBCUT SCH ×5 (07:34→21:39)
[2021-03-10] MEDS: OXYBUTYNIN XL 5 MG TABLET PO SCH (08:43)
[2021-03-10] MEDS: OMEGA 3 ACID ETHYL ESTERS 1 GM CAPSULE PO SCH ×2 (08:43→21:40)
[2021-03-10] MEDS: allopurinoL 300 MG TABLET PO SCH (08:43)
[2021-03-10] MEDS: METHOCARBAMOL 500 MG TABLET PO SCH ×2 (08:43→21:40)
[2021-03-10] MEDS: POTASSIUM CHLORIDE 20 MEQ TABLET PO SCH ×2 (08:43→21:40)
[2021-03-10] MEDS: amLODIPine 10 MG TABLET PO SCH (08:43)
[2021-03-10] MEDS: BENZONATATE 100 MG CAPSULE PO SCH ×3 (08:43→21:40)
[2021-03-10] MEDS: NEBIVOLOL 5 MG TABLET PO SCH (08:43)
[2021-03-10] MEDS: PANTOPRAZOLE 40 MG TABLET PO SCH (08:43)
[2021-03-10] MEDS: IRON (CARBONYL)/VIT C/B12/FA TABLET PO SCH (08:43)
[2021-03-10] MEDS: DOCUSATE SODIUM 100 MG CAPSULE PO PRN (08:43)
[2021-03-10] MEDS: MAGNESIUM OXIDE 400 MG TABLET PO SCH ×2 (08:43→21:41)
[2021-03-10] MEDS: HYOSCYAMINE 0.125 MG TABLET PO SCH ×3 (08:43→21:43)
[2021-03-10] MEDS: ATORVASTATIN 40 MG TABLET PO SCH (08:43)
[2021-03-10] MEDS: MUPIROCIN 2% OINT 22 GM TUBE TOP SCH ×2 (08:44→21:41)
[2021-03-10] MEDS: BUDESONIDE/FORMOTEROL 160-4.5 INHALER 6 GM INH SCH ×2 (08:44→21:41)
[2021-03-10] MEDS: NYSTATIN 500,000 UNIT/5 ML UDCUP SWISH/SWAL SCH ×4 (08:44→21:39)
[2021-03-10] MEDS: methylPREDNISolone SOD SUC 40 MG/1 ML VIAL IV SCH (08:44)
[2021-03-10] MEDS: GABAPENTIN 100 MG CAPSULE PO SCH ×2 (08:44→21:43)
[2021-03-10] MEDS: POLYETHYLENE GLYCOL POWDER 17 GM PACK PO SCH (09:26)
[2021-03-10] MEDS: MORPHINE 2 MG/1 ML SYRINGE IV PRN (11:37)
[2021-03-10] MEDS: CLINDAMYCIN 300 MG CAPSULE PO SCH ×2 (14:49→21:41)
[2021-03-10] MEDS: ENOXAPARIN 40 MG/0.4 ML SYRINGE SUBCUT SCH (21:38)
[2021-03-10] MEDS: INSULIN GLARGINE 100 UNIT/ML SUBCUT SCH (21:39)
[2021-03-10] MEDS: AMITRIPTYLINE 25 MG TABLET PO SCH (21:39)
[2021-03-11] MEDS: ALBUTEROL/IPRATROPIUM 3 ML NEB RESP TX SCH ×2 (01:21→07:23)
[2021-03-11] MEDS: CLINDAMYCIN 300 MG CAPSULE PO SCH (05:04)
[2021-03-11] MEDS: ACYCLOVIR 5% OINT 15 GM TUBE TOP SCH ×2 (05:08→09:09)
[2021-03-11 05:55] LABS: Basophils % 0.1 % (0.0-0.8); Eosinophils # 0.1 10*3/uL (0.0-0.87); Eosinophils % 0.7 % (0.00-10.9); Hematocrit 32.7 VOL% (35.7-47.0); Hemoglobin 10.2 GM/DL (12.0-16.0); Immature Granulocytes % 1.3 %; Immature Granulocytes Absolute 0.18 #; Lymphocytes # 2.2 10*3/uL (1.4-4.0); Lymphocytes % 16.3 % (21.3-54.2); Mean Corpuscular HGB Conc 31.2 GM/DL (32-36); Mean Corpuscular Volume 102.8 FL (87-102); Mean Platelet Volume 9.3 FL (9.6-12.0); Monocytes % 3.4 % (1.7-12.7); Neutrophils % 78.2 % (38.7-73.9); Platelet Count 187 T/CUMM (130-400); Red Blood Count 3.18 MC/CUMM (3.8-5.5); Red Cell Distribution Width 15.3 % (9.3-17.3); White Blood Count 13.4 T/CUMM (4-12)
[2021-03-11 06:21] LABS: Osmolality,Calculated 274.8 MOS/KG (273-304); Potassium 4.4 MMOL/L (3.5-5.1)
[2021-03-11] MEDS: INSULIN LISPRO 100 UNIT/ML SUBCUT SCH (07:31)
[2021-03-11] MEDS: NYSTATIN 500,000 UNIT/5 ML UDCUP SWISH/SWAL SCH (09:05)
[2021-03-11] MEDS: amLODIPine 10 MG TABLET PO SCH (09:06)
[2021-03-11] MEDS: IRON (CARBONYL)/VIT C/B12/FA TABLET PO SCH (09:06)
[2021-03-11] MEDS: MAGNESIUM OXIDE 400 MG TABLET PO SCH (09:06)
[2021-03-11] MEDS: POTASSIUM CHLORIDE 20 MEQ TABLET PO SCH (09:06)
[2021-03-11] MEDS: METHOCARBAMOL 500 MG TABLET PO SCH (09:07)
[2021-03-11] MEDS: GABAPENTIN 100 MG CAPSULE PO SCH (09:07)
[2021-03-11] MEDS: HYOSCYAMINE 0.125 MG TABLET PO SCH (09:07)
[2021-03-11] MEDS: PANTOPRAZOLE 40 MG TABLET PO SCH (09:07)
[2021-03-11] MEDS: allopurinoL 300 MG TABLET PO SCH (09:07)
[2021-03-11] MEDS: NEBIVOLOL 5 MG TABLET PO SCH (09:07)
[2021-03-11] MEDS: BENZONATATE 100 MG CAPSULE PO SCH (09:07)
[2021-03-11] MEDS: methylPREDNISolone SOD SUC 40 MG/1 ML VIAL IV SCH ×2 (09:08→09:20)
[2021-03-11] MEDS: ATORVASTATIN 40 MG TABLET PO SCH (09:08)
[2021-03-11] MEDS: OXYBUTYNIN XL 5 MG TABLET PO SCH (09:08)
[2021-03-11] MEDS: OMEGA 3 ACID ETHYL ESTERS 1 GM CAPSULE PO SCH (09:08)
[2021-03-11] MEDS: MUPIROCIN 2% OINT 22 GM TUBE TOP SCH (09:10)
[2021-03-11] MEDS: BUDESONIDE/FORMOTEROL 160-4.5 INHALER 6 GM INH SCH (09:17)
[2021-03-11] MEDS: POLYETHYLENE GLYCOL POWDER 17 GM PACK PO SCH (09:17)
[2021-03-11 11:44] VITALS: BP 104/56
== END 2021-03-11 12:10 | disposition home health service (06) | DRG 871 ==
LOC: EDBD → EDUNIT# → N.ED 21:38 → N.EDINP 02-20 00:20 → SUATTDRO 02-20 00:20 → N.ICU 02-21 13:50 → N.3E 02-22 14:22
PROVIDERS: ADMIT Internal Medicine; ATTEND Hospitalist